=== PATIENT | male | born 1955 | race Caucasian/White ===

== ENCOUNTER 2019-05-13 05:49 | Inpatient (IN) | payer BC ==
[2019-05-12 09:24] VITALS: BMI 22.5
[~2019-05-13 05:49] MED LIST: DEXAMETHASONE SOD PHOSPHATE 10 MG/ML 1 ML VIAL IV ONE; HYDROmorphone 0.5 MG/0.5 ML SYRINGE IVP PRN; MIDAZOLAM 2 MG/2 ML VIAL IV PRN; SCOPOLAMINE 1.5MG/72HR PATCH TRANSDERM ONE; SODIUM CHLORIDE 0.9% 1,000 ML in EMPTY BAG 1 BAG IV ONE
[2019-05-13 06:51] LABS: Basophils # (A) 0.1 k/uL (0-0.2); Basophils % (A) 1 %; Eosinophils # (A) 0.3 k/uL (0-0.7); Eosinophils % (A) 4 %; HCT 42.5 % (39.0-53.0); HGB 13.9 gm/dL (13.0-17.5); Lymphocytes # (A) 1.4 k/uL (1.0-4.8); Lymphocytes % (A) 22 %; MCH 31.3 pg (25.0-35.0); MCHC 32.8 g/dL (31.0-37.0); MCV 95.5 fL (80.0-100.0); Mean Platelet Volume 7.8; Monocytes # (A) 0.4 k/uL (0-1.0); Monocytes % (A) 6 %; Neutrophils # (A) 4.4 k/uL (1.3-7.7); Neutrophils % (A) 66 %; Platelet Count 181 k/uL (150-450); RBC 4.45 m/uL (4.30-5.90); RDW 13.1 % (11.5-15.5); WBC 6.7 k/uL (3.8-10.6)
[2019-05-13 06:59] LABS: Prothrombin Time 10.4 sec (9.0-12.0)
[2019-05-13] MEDS ORDERED: ASPIRIN 325 MG TAB PO ONE (07:00)
[2019-05-13 07:07] LABS: African American GFR (CKD) >90 (>60 ml/min/1.73 sqM); Anion Gap 6 mmol/L; Blood Urea Nitrogen 16 mg/dL (9-20); Carbon Dioxide 28 mmol/L (22-30); Chloride 107 mmol/L (98-107); Glucose 96 mg/dL (74-99); Potassium 4.3 mmol/L (3.5-5.1); Sodium 141 mmol/L (137-145)
[2019-05-13] MEDS ORDERED: ONDANSETRON 4 MG/2 ML VIAL ONE (07:30)
[2019-05-13] MEDS ORDERED: PROPOFOL 10 MG/ML 20 ML VIAL IV ONE (07:30)
[2019-05-13] MEDS ORDERED: MIDAZOLAM 2 MG/2 ML VIAL ONE (07:30)
[2019-05-13] MEDS ORDERED: fentaNYL (PF) 50 MCG/ML 2 ML AMP ONE (07:30)
[2019-05-13] MEDS ORDERED: NEOSTIGMINE 1 MG/ML 10 ML VIAL ONE (07:30)
[2019-05-13] MEDS ORDERED: GLYCOPYRROLATE 0.2 MG/ML 2 ML VIAL ONE (07:30)
[2019-05-13] MEDS ORDERED: ePHEDrine SULFATE/0.9% NACL/PF 50 MG/5 ML SYRINGE IV ONE (07:30)
[2019-05-13] MEDS ORDERED: HEPARIN SODIUM,PORCINE 10,000 UNIT/ML 1 ML VIAL ONE (07:30)
[2019-05-13] MEDS ORDERED: ESMOLOL 100 MG/10 ML VIAL ONE (07:30)
[2019-05-13] MEDS ORDERED: ROCURONIUM BROMIDE 10 MG/ML 10 ML VIAL IV ONE (07:30)
[2019-05-13] MEDS ORDERED: SUCCINYLCHOLINE CHLORIDE 100 MG/5 ML SYR IV ONE (07:30)
[2019-05-13] MEDS ORDERED: LIDOCAINE 1% INJ 10MG/ML (20 ML MDV) ONE (07:30)
[2019-05-13] MEDS ORDERED: PHENYLEPHRINE-0.9% NACL SYG 1 MG/10 ML SYRINGE ONE (07:30)
[2019-05-13] MEDS ORDERED: SODIUM CHLORIDE 0.9% 1,000 ML IV SCH ×2 (10:30→17:15)
--- NOTE | 2019-05-13 11:44 | IR ---
EXAMINATION TYPE: IR fire suppression captain aorta DATE OF EXAM: 05/13/2019 COMPARISON: NONE HISTORY: Fluoroscopy time. Fluoroscopy was provided to the referring clinician.
[2019-05-13 12:08] LABS: Glucose,Whole Blood 112 mg/dL (75-99)
[2019-05-13 12:31] LABS: Basophils % (A) 0 %; Eosinophils # (A) 0.2 k/uL (0-0.7); Eosinophils % (A) 2 %; HCT 40.1 % (39.0-53.0); HGB 13.2 gm/dL (13.0-17.5); Lymphocytes # (A) 1.7 k/uL (1.0-4.8); Lymphocytes % (A) 23 %; MCH 31.6 pg (25.0-35.0); MCHC 32.9 g/dL (31.0-37.0); MCV 96.3 fL (80.0-100.0); Mean Platelet Volume 7.4; Monocytes # (A) 0.4 k/uL (0-1.0); Monocytes % (A) 6 %; Neutrophils # (A) 4.9 k/uL (1.3-7.7); Neutrophils % (A) 68 %; Platelet Count 160 k/uL (150-450); RBC 4.17 m/uL (4.30-5.90); WBC 7.2 k/uL (3.8-10.6)
[2019-05-13 12:42] LABS: African American GFR (CKD) >90 (>60 ml/min/1.73 sqM); Anion Gap 4 mmol/L; Blood Urea Nitrogen 13 mg/dL (9-20); Calcium 8.2 mg/dL (8.4-10.2); Carbon Dioxide 25 mmol/L (22-30); Chloride 109 mmol/L (98-107); Glucose 98 mg/dL (74-99); Sodium 138 mmol/L (137-145)
[2019-05-13] MEDS: ONDANSETRON 4 MG/2 ML VIAL IVP ONE (16:55)
[2019-05-13] MEDS: LACTATED RINGERS 1,000 ML IV SCH ×2 (16:56→17:01)
[2019-05-13] MEDS: hydrALAZINE HCL 25 MG TAB PO SCH ×2 (20:28→20:50)
[2019-05-13] MEDS: CLOPIDOGREL 75 MG TAB PO SCH (20:28)
[2019-05-13] MEDS: hydrALAZINE HCL 20 MG/ML 1 ML VIAL IVP PRN (21:09)
[2019-05-14 05:03] LABS: Basophils % (A) 0 %; Eosinophils # (A) 0.1 k/uL (0-0.7); Eosinophils % (A) 1 %; HCT 42.9 % (39.0-53.0); HGB 14.1 gm/dL (13.0-17.5); Lymphocytes % (A) 9 %; MCHC 32.8 g/dL (31.0-37.0); MCV 97.4 fL (80.0-100.0); Mean Platelet Volume 7.5; Monocytes # (A) 0.6 k/uL (0-1.0); Monocytes % (A) 6 %; Neutrophils # (A) 9.6 k/uL (1.3-7.7); Neutrophils % (A) 84 %; Platelet Count 170 k/uL (150-450); RBC 4.41 m/uL (4.30-5.90); WBC 11.5 k/uL (3.8-10.6)
[2019-05-14 05:14] LABS: African American GFR (CKD) >90 (>60 ml/min/1.73 sqM); Anion Gap 9 mmol/L; Blood Urea Nitrogen 12 mg/dL (9-20); Carbon Dioxide 22 mmol/L (22-30); Chloride 104 mmol/L (98-107); Glucose 99 mg/dL (74-99); Sodium 135 mmol/L (137-145)
[2019-05-14] MEDS ORDERED: DILTIAZEM DRIP BOLUS FROM BAG 1 MG SOLN IV STA (05:19)
[2019-05-14] MEDS: DILTIAZEM 125 MG in SODIUM CHLORIDE 0.9% 100 ML IV SCH (05:23)
--- NOTE | 2019-05-14 05:46 | AN ---
ANGIOGRAPHY REPORT PERIPHERAL PROCEDURE DATE OF SERVICE: May 13, 2019 PERFORMING PHYSICIAN: paper wrapping machine operator is Dr. Ryley Hernandez. Secondary churn operator is Dr. Daniel Jo. PROCEDURE PERFORMED: Successful percutaneous repair of infrarenal abdominal aortic aneurysm using 26 mm Ovation iX device with excellent angiographic results by the end and without any complication. INDICATION: This is a pleasant 58-year-old gentleman who sees Dr. Stefanie Crawford in the office as an outpatient who was diagnosed recently with enlarging infrarenal abdominal aortic aneurysm which was confirmed by a CT scan. He also was found to have bilateral iliac aneurysm as well. Because of that, he was brought today to undergo percutaneous repair of the infrarenal abdominal aortic aneurysm. COMPLICATION: None. LEVEL OF SEDATION: Procedure was performed under general anesthesia. COMPLICATION: None. PROCEDURE DESCRIPTION: After obtaining an informed consent, the patient was brought to the cardiac director geophysical laboratory. General anesthesia was induced with anesthesiologist in the room and VISCOSITY INSPECTOR in the room as well. Percutaneous access was obtained to both femoral arteries using Seldinger technique and using an 18-gauge Cook needle. A 12-Guamanian sheath was inserted into the ipsilateral vessel which was right common femoral artery using an 0.035 Glidewire. On the left common femoral artery we placed an 8-Guamanian sheath and the access was performed the same way on the right side using modified Seldinger technique and using ultrasound guidance on both sides. At that point, anticoagulation was initiated using heparin and the patient was given a weight-based heparin with 7000 units of heparin at the beginning of the procedure after the access was achieved and ACT monitoring was continued continuous throughout the procedure. After that, we loaded 26 mm Ovation iX aortic jordan delivery system over stiff 0.035 Glidewire. The delivery system was inserted into the vasculature and advanced until the implant radiopaque marker were about 20 mm proximal to the intended landing site. We oriented the aortic body to the desired position for appropriate access to the contralateral aortic body limb. Please note that we did perform an angiogram using pigtail catheter to assess the takeoff of the right and left accessory renal arteries prior to inserting the main body of the device. After that, we retracted the delivery system outer sheath until the sheath retraction knob met handle. Subsequently, we verified the radiopaque marker and long delivery system radiopaque marker to be in the correct position. Subsequently I deployed the first segment of the proximal stent by turning the first stent release knob, quarter turn counter-clockwise and then steadily I pulled the knob and attached wire from the handle completely. After that, we precisely positioned the implant radiopaque marker at final proximal landing site. We used contrast injection to confirm implant position relative to the accessory renal arteries mainly on the left side. After that, we retracted the angiographic pigtail catheter away from the proximal stent. Then we deployed the remainder of the proximal stent by turning the second stent release knob, quarter turn counter-clockwise at this point and then I steadily pulled the knob and the attached wire completely from the handle. Subsequently, we did remove the green fill cap from the polymer injection port on handle and attached fill syringe to it. We retracted the aortic body guidewire tip to radiopaque marker distal to the aortic body. We did use fluoroscopy guidance to intermittently to observe the filling of the graft with radiopaque filling polymer. Subsequently, contralateral limb access lumen was obtained with a guidewire the contralateral cannulation. After insertion 0.035 wire through the contralateral site, we loaded 16 x 80 mm iliac limb delivery system over contralateral guidewire. Under fluoroscopy guidance, we inserted the limb delivery system into the vasculature until the proximal iliac limb radiopaque marker aligned with the most proximal half ring of the aortic body. After confirming the position, we retracted the sheath to deploy the iliac limb while maintaining catheter handle position. Subsequently, we maintained position of the sheath and retracted the catheter handle to receipt the nose cone and end delivery system over sheath. After that, we advanced the aortic body guidewire. Then we released the catheter from the aortic body. For the ipsilateral limb, we used 22 x 100 limb delivery system. With the same way, we did the contralateral where under fluoroscopy guidance the limb was position. We did that on that side as well. Subsequently, we did balloon angioplasty which was 10 x 4 kissing balloons on both limbs in the proximal, mid and distal portion. Subsequently after , we did final angiogram which revealed what seems to be type 2 endoleak coming from the lumbar we did after that. Subsequently, we did close both groins percutaneously where on the right side, we did one Perclose and one 5-Guamanian sheath; on the left side we did one Perclose and one Angio-Seal. The procedure was completed without any complication. POSTPROCEDURE MANAGEMENT: 1. Will be antiplatelet with Plavix. 2. Continue to monitor both groins closely. 3. Follow up with the patient. BRIANNE / PILI: [id number] /
[2019-05-14] MEDS ORDERED: DILTIAZEM DRIP BOLUS FROM BAG 1 MG SOLN IV ONE (06:13)
[2019-05-14] MEDS: METOPROLOL TARTRATE 12.5 MG TAB PO SCH ×2 (08:12→20:12)
[2019-05-14] MEDS: ONDANSETRON 4 MG/2 ML VIAL IVP ONE (08:35)
[2019-05-14] MEDS ORDERED: ONDANSETRON 4 MG/2 ML VIAL IVP PRN ×2 (08:50→10:25)
[2019-05-14] MEDS ORDERED: MORPHINE SULFATE 2 MG/ML SYRINGE IVP STA (09:45)
[2019-05-14] MEDS ORDERED: BENZOCAINE SPRAY 1 CAN MUCOUS MEM ONE ×2 (11:02→11:07)
[2019-05-14] MEDS ORDERED: PROPOFOL 10 MG/ML 20 ML VIAL IV ONE (11:06)
[2019-05-14] MEDS ORDERED: LIDOCAINE 1% INJ 10MG/ML (20 ML MDV) ONE (11:06)
[2019-05-14] MEDS ORDERED: MIDAZOLAM 2 MG/2 ML VIAL ONE (11:06)
[2019-05-14] MEDS ORDERED: IV FLUID CONTINUATION 1,000 ML IV ONE (11:12)
[2019-05-14] MEDS: TAMSULOSIN 0.4 MG CAP.ER.24H PO SCH (12:15)
[2019-05-14] MEDS: CLOPIDOGREL 75 MG TAB PO SCH (12:16)
[2019-05-14] MEDS: ATORVASTATIN 40 MG TAB PO SCH (12:16)
[2019-05-14] MEDS: hydrALAZINE HCL 25 MG TAB PO SCH ×3 (12:16→21:03)
--- NOTE | 2019-05-14 12:37 | P.PN ---
Progress Note - Text Progress Note Date: 05/14/19 This is a pleasant 64-year-old gentleman was admitted to the hospital yesterday and underwent successful percutaneous repair of infrarenal abdominal aortic aneurysm using the operation device with an excellent results by the end as well as with an excellent bilateral groin hemostasis. During the night, the patient went into an atrial fibrillation with RVR. He continues to be in atrial fibrillation throughout the night in spite of high dose of Cardizem IV. Because of that I decided to do a SOFIYA and cardioversion on him. Upon induction anesthesia, the patient converted into normal sinus rhythm on his own. I am going to resume his medication including the metoprolol. Continue antiplatelet with the Plavix. The blood work was reviewed this morning and seems to be unremarkable. Both the groin seems to be unremarkable as well. I recommended keeping the patient overnight for 1 more day. Follow-up with him in the morning. And possible discharge home tomorrow morning as well. Also I am going to resume his Coumadin.
--- NOTE | 2019-05-14 13:11 | ECHOT ---
TRANSESOPHAGEAL ECHOCARDIOGRAM DATE OF SERVICE: May 14, 2019 PERFORMING PHYSICIAN: Daniel Jo MD, information engineer. PROCEDURE PERFORMED: Transesophageal echocardiogram. INDICATION: This is a 64-year-old gentleman with paroxysmal atrial fibrillation, who was admitted to the hospital yesterday and underwent successful percutaneous repair of infrarenal abdominal aortic aneurysm. Postprocedure, he went into atrial fibrillation with RVR which was uncontrollable, which was uncontrolled on maximized medical treatment. Because of that, I decided to do a SOFIYA and cardioversion on him. COMPLICATION: None. LEVEL OF SEDATION: The procedure was performed under general anesthesia. PROCEDURE DESCRIPTION: After obtaining an informed consent, explaining the procedure, benefits, risks, complications and alternatives, the patient was brought to the transesophageal echocardiogram suite. A pulse oximetry and heart rate monitors were attached to the patient prior to the procedure. The patient's throat was sprayed using lidocaine locally. Following that, the patient was turned into left lateral position. A bite guard was placed and the patient was then sedated with the above doses of Versed and fentanyl in divided doses. Following that, the transesophageal echocardiogram probe was advanced through the bite guard into the mid esophagus where 2-D echocardiogram images as well as color Doppler images of various cardiac structures were obtained. We evaluated the interatrial septum using 2-D echocardiogram, color Doppler, and contrast study. The procedure was completed. There were no complications. FINDINGS: The left ventricular dimension and systolic function appeared to be within normal limits. Right ventricle appeared to be within normal limits for dimension. The aortic valve is trileaflet valve without stenosis or regurgitation. The mitral valve seems mildly thickened with mild MR. Normal tricuspid valve and pulmonic valve. The left atrial appendage appeared to be free from any thrombus. CONCLUSION: 1. Intact interatrial septum without any evidence of shunt. 2. Normal left atrial appendage without any evidence of thrombus. 3. Normal left ventricular dimension and systolic function. 4. Normal cardiac chamber sizes. 5. Normal intracardiac valves. 6. No evidence of pericardial effusion. MMODL / IJN: [id number] /
[2019-05-14] MEDS: hydrALAZINE HCL 20 MG/ML 1 ML VIAL IVP PRN ×2 (17:46→23:39)
[2019-05-14] MEDS ORDERED: ALPRAZolam 0.25 MG TAB PO PRN (19:51)
[2019-05-15] MEDS: DILTIAZEM 125 MG in SODIUM CHLORIDE 0.9% 100 ML IV SCH (04:15)
[2019-05-15 05:34] LABS: Basophils % (A) 0 %; Eosinophils # (A) 0.1 k/uL (0-0.7); Eosinophils % (A) 1 %; HCT 41.2 % (39.0-53.0); HGB 14.4 gm/dL (13.0-17.5); Lymphocytes # (A) 1.4 k/uL (1.0-4.8); Lymphocytes % (A) 8 %; MCH 32.3 pg (25.0-35.0); Mean Platelet Volume 7.5; Monocytes # (A) 1.2 k/uL (0-1.0); Monocytes % (A) 6 %; Neutrophils # (A) 15.4 k/uL (1.3-7.7); Neutrophils % (A) 84 %; Platelet Count 184 k/uL (150-450); RBC 4.46 m/uL (4.30-5.90); RDW 13.7 % (11.5-15.5); WBC 18.3 k/uL (3.8-10.6)
[2019-05-15 05:37] LABS: MCV 92.4 fL (80.0-100.0)
[2019-05-15 05:43] LABS: African American GFR (CKD) >90 (>60 ml/min/1.73 sqM); Anion Gap 11 mmol/L; Blood Urea Nitrogen 17 mg/dL (9-20); Calcium 9.2 mg/dL (8.4-10.2); Carbon Dioxide 22 mmol/L (22-30); Chloride 100 mmol/L (98-107); Glucose 125 mg/dL (74-99); Potassium 3.5 mmol/L (3.5-5.1); Sodium 133 mmol/L (137-145)
[2019-05-15] MEDS ORDERED: Potassium Replacement Protocol 1 EACH MISC MISCELLANE PRN (06:05)
[2019-05-15] MEDS: POTASSIUM CHLORIDE ER 20 MEQ TAB.ER PO SCH ×2 (06:12→08:14)
[2019-05-15] MEDS: hydrALAZINE HCL 20 MG/ML 1 ML VIAL IVP PRN (06:56)
[2019-05-15] MEDS: METOPROLOL TARTRATE 12.5 MG TAB PO SCH (08:14)
[2019-05-15] MEDS: TAMSULOSIN 0.4 MG CAP.ER.24H PO SCH (08:14)
[2019-05-15] MEDS: hydrALAZINE HCL 25 MG TAB PO SCH ×4 (08:14→22:13)
[2019-05-15] MEDS: CLOPIDOGREL 75 MG TAB PO SCH (08:14)
[2019-05-15] MEDS: ATORVASTATIN 40 MG TAB PO SCH (08:14)
[2019-05-15] MEDS ORDERED: METOPROLOL TARTRATE 12.5 MG TAB PO STA (08:39)
--- NOTE | 2019-05-15 09:03 | PN ---
PROGRESS NOTE DATE OF SERVICE: 05/15/2019 BRIEF HISTORY: This is a 64-year-old gentleman who was admitted to the hospital and underwent successful percutaneous repair of infrarenal abdominal aortic aneurysm using the ovation device. Yesterday, he went into AFib with RVR and subsequently converted to normal sinus mechanism. On followup with him today, he is feeling better. Denies any chest pain or discomfort but he does have epigastric discomfort, but it seems to be better than yesterday. It looks like he does have some reflux disease as well. Reviewing the blood work indicated WBC of 18.3. I am concerned about possible infection and possibly UTI at this point. Because of that, I am going to keep the patient overnight in the selective unit here on the floor. I would increase the dose of metoprolol as well to 25 mg p.o. b.i.d. Continue the Plavix. Continue the Coumadin. Follow up with the patient as well. BRIANNE / TRININ: [id number] /
[2019-05-15] MEDS: LEVOFLOXACIN 250MG-D5W PMX 250 MG in DEXTROSE/WATER 1 50ML.BAG IVPB SCH (10:16)
[2019-05-15 11:39] LABS: Appearance,Urine Cloudy (Clear); Bilirubin,Urine Negative (Negative); Blood,Urine Moderate (Negative); Color,Urine Yellow; Glucose,Urine (UA) Negative (Negative); Ketones,Urine Negative (Negative); Leukocyte Esterase,Urine Large (Negative); Mucus,Urine Rare /hpf; Nitrite,Urine Negative (Negative); PH, Urine 6.5 (5.0-8.0); Protein,Urine 1+ (Negative); RBC,Urine >182 /hpf (0-5); Specific Gravity,Urine 1.013 (1.001-1.035); Urobilinogen,Urine <2.0 mg/dL (<2.0); WBC,Urine 150 /hpf (0-5)
[2019-05-15] MEDS: MAGNESIUM HYDROXIDE 2,400 MG/10 ML CUP PO PRN ×2 (17:31→20:28)
[2019-05-15] MEDS ORDERED: AMIODARONE 360 MG in DEXTROSE 5% IN WATER 200 ML IV ONE ×2 (17:57)
[2019-05-15] MEDS ORDERED: METOPROLOL TARTRATE 50 MG TAB PO STA (17:57)
[2019-05-15] MEDS ORDERED: DEXTROSE 5% IN WATER 100 ML with AMIODARONE 150 MG IV ONE (17:57)
[2019-05-15] MEDS ORDERED: HEPARIN SODIUM,PORCINE 5,000 UNIT/ML 1 ML VIAL IV PRN (17:58)
[2019-05-15] MEDS ORDERED: HEPARIN SODIUM,PORCINE 5,000 UNIT/ML 1 ML VIAL IV ONE (17:58)
[2019-05-15] MEDS ORDERED: HEPARIN SOD,PORK IN 0.45% NACL 25,000 UNIT in 0.45% NACL 1 250ML.BAG IV SCH (18:00)
[2019-05-15 18:28] LABS: Basophils % (A) 0 %; Eosinophils # (A) 0.2 k/uL (0-0.7); Eosinophils % (A) 1 %; HCT 42.7 % (39.0-53.0); HGB 14.2 gm/dL (13.0-17.5); Lymphocytes # (A) 1.3 k/uL (1.0-4.8); Lymphocytes % (A) 8 %; MCH 31.2 pg (25.0-35.0); MCHC 33.3 g/dL (31.0-37.0); MCV 93.9 fL (80.0-100.0); Mean Platelet Volume 7.3; Monocytes # (A) 0.8 k/uL (0-1.0); Monocytes % (A) 5 %; Neutrophils # (A) 14.1 k/uL (1.3-7.7); Neutrophils % (A) 85 %; Platelet Count 184 k/uL (150-450); RBC 4.55 m/uL (4.30-5.90); WBC 16.6 k/uL (3.8-10.6)
[2019-05-15 18:37] LABS: INR 0.9 (<1.2); Partial Thromboplastin Time 23.4 sec (22.0-30.0); Prothrombin Time 9.8 sec (9.0-12.0)
[2019-05-15] MEDS: METOPROLOL TARTRATE 50 MG TAB PO SCH (20:28)
[2019-05-15] MEDS ORDERED: METOPROLOL TARTRATE 25 MG TAB PO SCH (21:00)
[2019-05-15 21:52] LABS: African American GFR (CKD) >90 (>60 ml/min/1.73 sqM); Anion Gap 8 mmol/L; Blood Urea Nitrogen 19 mg/dL (9-20); Calcium 9.1 mg/dL (8.4-10.2); Carbon Dioxide 24 mmol/L (22-30); Chloride 102 mmol/L (98-107); Glucose 139 mg/dL (74-99); Potassium 3.8 mmol/L (3.5-5.1); Sodium 134 mmol/L (137-145)
[2019-05-16] MEDS: AMIODARONE 300 MG in DEXTROSE 5% IN WATER 250 ML IV SCH ×4 (00:48→10:36)
[2019-05-16 07:35] LABS: HCT 42.3 % (39.0-53.0); HGB 14.3 gm/dL (13.0-17.5); MCH 31.9 pg (25.0-35.0); MCHC 33.8 g/dL (31.0-37.0); MCV 94.5 fL (80.0-100.0); Mean Platelet Volume 7.7; Platelet Count 205 k/uL (150-450); RBC 4.48 m/uL (4.30-5.90); RDW 13.2 % (11.5-15.5); WBC 14.1 k/uL (3.8-10.6)
[2019-05-16] MEDS: METOPROLOL TARTRATE 50 MG TAB PO SCH (08:23)
[2019-05-16] MEDS: TAMSULOSIN 0.4 MG CAP.ER.24H PO SCH (08:23)
[2019-05-16] MEDS: hydrALAZINE HCL 25 MG TAB PO SCH (08:23)
[2019-05-16] MEDS: ATORVASTATIN 40 MG TAB PO SCH (08:23)
[2019-05-16] MEDS: CLOPIDOGREL 75 MG TAB PO SCH (08:23)
[2019-05-16] MEDS: LEVOFLOXACIN 250MG-D5W PMX 250 MG in DEXTROSE/WATER 1 50ML.BAG IVPB SCH (08:24)
[2019-05-16 08:34] LABS: African American GFR (CKD) >90 (>60 ml/min/1.73 sqM); Anion Gap 7 mmol/L; Blood Urea Nitrogen 24 mg/dL (9-20); Calcium 8.9 mg/dL (8.4-10.2); Carbon Dioxide 26 mmol/L (22-30); Chloride 102 mmol/L (98-107); Glucose 120 mg/dL (74-99); Potassium 3.9 mmol/L (3.5-5.1); Sodium 135 mmol/L (137-145)
[2019-05-16 09:33] VITALS: BP 97/67; TEMP 98.2
[2019-05-16] MEDS: MAGNESIUM HYDROXIDE 2,400 MG/10 ML CUP PO PRN (12:00)
[2019-05-16 12:39] VITALS: PULSE 59; RESP 16
[2019-05-16] MEDS ORDERED: PANTOPRAZOLE 40 MG TABLET PO SCH (17:30)
[2019-05-16] MEDS ORDERED: WARFARIN 5 MG TAB PO ONE (18:00)
[2019-05-16] MEDS ORDERED: AMIODARONE 200 MG TAB PO SCH (21:00)
--- NOTE | 2019-05-16 21:11 | DS ---
DISCHARGE SUMMARY DATE OF ADMISSION: 05/13/2019 DATE OF DISCHARGE: 05/16/2019 BRIEF HISTORY: This is a pleasant 64-year-old gentleman who was admitted to the hospital 2 days ago and underwent successful percutaneous repair of abdominal aortic aneurysm. The procedure was complicated by atrial fibrillation with RVR and the patient subsequently converted into normal sinus rhythm on his own. Yesterday he went into atrial fibrillation again and he was started on amiodarone and converted to normal sinus mechanism on amiodarone. On followup with him today, he is feeling good and he is asymptomatic. I am going to discharge the patient on anti-platelet with Plavix, Coumadin for anticoagulation for the atrial fibrillation, Protonix, Lopressor and amiodarone. The patient will be seeing me in the office in a few days. After that, he will be sent to see Dr. Crawford. MMIGNACIAL / IJN: [id number] /
[2019-05-17] MEDS ORDERED: SULFAMETHOX-TMP 800-160MG 1 EACH TAB PO SCH (09:00)
== END 2019-05-16 14:19 | disposition home or self-care (01) | DRG 269 ==
LOC: 2ORMAIN 05:49 → 2SICU 10:31
PROVIDERS: ADMIT Internal Medicine Interventional Cardiology; ATTEND Internal Medicine Interventional Cardiology
PROC: 04V03DZ Restriction of Abdominal Aorta with Intraluminal Device, Percutaneous Approach (ICD-10-PCS; principal; 2019-05-13 07:30)
PROC: B24BZZ4 Ultrasonography of Heart with Aorta, Transesophageal (ICD-10-PCS; 2019-05-14)
DX: I71.4 Abdominal aortic aneurysm, without rupture (principal); I48.0 Paroxysmal atrial fibrillation; I25.10 Atherosclerotic heart disease of native coronary artery without angina pectoris; E78.00 Pure hypercholesterolemia, unspecified; I10 Essential (primary) hypertension; K21.9 Gastro-esophageal reflux disease without esophagitis; F17.210 Nicotine dependence, cigarettes, uncomplicated; Z79.899 Other long term (current) drug therapy; Z79.01 Long term (current) use of anticoagulants; Z79.02 Long term (current) use of antithrombotics/antiplatelets; Z98.890 Other specified postprocedural states
CPT/HCPCS: 34705; 80048; 81001; 84443; 84484; 85025; 85027; 85610; 85730; 86850; 86900; 86901; 92960; 93312; 93320; 93325

== ENCOUNTER 2019-05-20 09:59 | Observation (INO) | payer BC ==
[2019-05-20] MEDS ORDERED: MORPHINE SULFATE 4 MG/ML SYRINGE IV STA (10:49)
[2019-05-20] MEDS ORDERED: SODIUM CHLORIDE 0.9% 500 ML 500 ML IV STA (10:49)
[2019-05-20] MEDS ORDERED: hydrALAZINE HCL 20 MG/ML 1 ML VIAL IVP STA ×2 (10:49→12:29)
--- NOTE | 2019-05-20 10:59 | ED ---
General Adult HPI <Teja Goldsmith - Last Filed: 05/20/19 14:15> - General Source: patient, RN notes reviewed Mode of arrival: ambulatory Limitations: no limitations <Neeraj Bains - Last Filed: 05/20/19 21:08> - General Chief complaint: Abdominal Pain Stated complaint: High blood pressure Time Seen by Provider: 05/20/19 10:19 - History of Present Illness Initial comments: Chris is a 64-year-old male with a past medical history of hypertension, prostate disorder who presents to the emergency department for a chief complaint of weakness and abdominal pain. Patient states that he had a percutaneous abdominal aortic aneurysm repair performed on May [address] Jo. States that since that time he has had intermittent abdominal pain on and off since his surgery. States that today he was watering [place]ckee and started to feel sick and weak and nauseous. She said they checked his blood pressure and it was 190. Patient has states that patient has been having high blood pressure since he was in the hospital. States that he was also diagnosed with atrial fibrillation while in the hospital. Patient currently anticoagulated on Coumadin.Patient has no other complaints at this time including shortness of breath, chest pain, nausea or vomiting, headache, or visual changes. (Neeraj Bains) - Related Data Home Medications Medication Instructions Recorded Confirmed Atorvastatin [Lipitor] 40 mg PO DAILY 04/11/19 05/20/19 Cholecalciferol (Vitamin D3) 10,000 unit PO DAILY 04/11/19 05/20/19 [Vitamin D3] Multivitamins, Thera [Multivitamin 1 tab PO DAILY 04/11/19 05/20/19 (formulary)] Tamsulosin [Flomax] 0.4 mg PO DAILY 04/11/19 05/20/19 Warfarin Sodium 4 mg PO HS 04/11/19 05/20/19 Previous Rx's Medication Instructions Recorded Amiodarone [Cordarone] 200 mg PO BID #180 tab 05/16/19 Clopidogrel [Plavix] 75 mg PO DAILY #90 tab 05/16/19 Metoprolol Tartrate [Lopressor] 50 mg PO BID #180 tab 05/16/19 hydrALAZINE HCL [Apresoline] 25 mg PO TID #180 tab 05/16/19 Allergies Allergy/AdvReac Type Severity Reaction Status Date / Time No Known Allergies Allergy Verified 05/20/19 10:16 Review of Systems ROS Other: All systems not noted in ROS Statement are negative. <Teja Goldsmith - Last Filed: 05/20/19 14:15> ROS Other: All systems not noted in ROS Statement are negative. <Neeraj Bains - Last Filed: 05/20/19 21:08> ROS Statement: Those systems with pertinent positive or pertinent negative responses have been documented in the HPI. Past Medical History Past Medical History: Atrial Fibrillation, Hypertension, Prostate Disorder Additional Past Medical History / Comment(s): BPH, AAA, CYST ON HIS BACK THAT IS INFECTED AND BEING TREATED BY DR JUAN-finished ANTIBIOTIC - DR JO aware), SEE CARDIOLOGY H & P. History of Any Multi-Drug Resistant Organisms: None Reported Past Surgical History: Tonsillectomy Additional Past Surgical History / Comment(s): COLONOSCOPY Past Anesthesia/Blood Transfusion Reactions: No Reported Reaction Past Psychological History: No Psychological Hx Reported Smoking Status: Current every day smoker Past Alcohol Use History: None Reported Past Drug Use History: None Reported - Past Family History Brother(s) Family Medical History: Cancer <Neeraj Bains P - Last Filed: 05/20/19 21:08> General Exam Limitations: no limitations General appearance: alert, in no apparent distress Head exam: Present: atraumatic, normocephalic, normal inspection Eye exam: Present: normal appearance, PERRL, EOMI. Absent: scleral icterus, conjunctival injection, periorbital swelling ENT exam: Present: normal exam, mucous membranes moist Neck exam: Present: normal inspection, full ROM. Absent: tenderness, meningismus, lymphadenopathy Respiratory exam: Present: normal lung sounds bilaterally. Absent: respiratory distress, wheezes, rales, rhonchi, stridor Cardiovascular Exam: Present: regular rate, normal rhythm, normal heart sounds. Absent: systolic murmur, diastolic murmur, rubs, gallop, clicks GI/Abdominal exam: Present: soft, tenderness (Tenderness noted to the right and left lower quadrants. No tenderness to the groin area.), normal bowel sounds. Absent: distended, guarding, rebound, rigid Neurological exam: Present: alert, oriented X3, CN II-XII intact Psychiatric exam: Present: normal affect, normal mood <Neeraj Bains P - Last Filed: 05/20/19 21:08> Course Vital Signs 05/20/19 05/20/19 05/20/19 10:06 10:23 10:40 Temperature 97.6 F Pulse Rate 56 L 65 Respiratory 20 Rate Blood Pressure 189/89 190/92 O2 Sat by Pulse 100 99 100 Oximetry 05/20/19 05/20/19 05/20/19 11:00 11:20 11:40 Temperature Pulse Rate 65 61 Respiratory Rate Blood Pressure 194/88 182/89 178/92 O2 Sat by Pulse 100 100 Oximetry 05/20/19 05/20/19 05/20/19 12:00 12:20 12:40 Temperature Pulse Rate 53 L 55 L 57 L Respiratory 16 Rate Blood Pressure 157/82 167/79 148/71 O2 Sat by Pulse 99 97 98 Oximetry 05/20/19 05/20/19 05/20/19 13:00 13:20 13:40 Temperature Pulse Rate 55 L 55 L Respiratory Rate Blood Pressure 149/68 82/59 98/57 O2 Sat by Pulse 96 96 Oximetry 05/20/19 05/20/19 05/20/19 13:50 13:55 14:00 Temperature Pulse Rate 53 L 52 L Respiratory Rate Blood Pressure 80/48 98/46 98/51 O2 Sat by Pulse 98 99 Oximetry 05/20/19 05/20/19 05/20/19 14:10 14:20 14:30 Temperature Pulse Rate 53 L 50 L 49 L Respiratory Rate Blood Pressure 95/53 106/67 112/62 O2 Sat by Pulse 99 99 100 Oximetry 05/20/19 15:40 Temperature 98.6 F Pulse Rate 56 L Respiratory 16 Rate Blood Pressure 106/66 O2 Sat by Pulse 99 Oximetry Medical Decision Making - Lab Data Result diagrams: 05/20/19 11:14 05/20/19 11:14 <Teja Goldsmith - Last Filed: 05/20/19 14:15> - Lab Data Result diagrams: 05/20/19 11:14 05/20/19 11:14 <Neeraj Bains - Last Filed: 05/20/19 21:08> - Medical Decision Making I, Yoan Goldsmith, personally saw and examined the patient. I have reviewed an d agree with the PA findings, including all diagnostic interpretations and treatment plans as written unless otherwise stated. I was present for the miller portions of any procedures performed and the inclusive time noted for any critical care statement. (Teja Goldsmith) 64-year-old male presents to the emergency department for multiple complaints. Patient states that he has been having abdominal pain intermittently since his AAA repair 5 days ago. This was done percutaneously. States that today he started to feel weak as well. Patient was diagnosed with A. fib in the hospital, EKG obtained today did show a sinus rhythm. On exam patient had slight lower abdominal tenderness. CBC and CMP unremarkable. Lactic acid 1.5.. Urine is negative for infection, trace ketones could be related to dehydration. Patient also hypertensive upon arrival with a blood pressure 189/89. Patient was given 10 of hydralazine. Second dose of hydralazine was not given. Patient's blood pressure at that time was 140s. He did maintain a normal blood pressure for about 2.5 hours afterwards however then became hypotensive in the 90s systolic. Patient was then given a L of fluids. We did consult with Dr. Jo and CT abdomen and pelvis was recommended which showed no bowel obstruction. Chest x-ray showed chronic emphysematous changes without acute pulmonary process. Given patient's labile blood pressure he will be admitted for further measuring a Dr. Jo will be consulted. (Neeraj Bains) - Lab Data Lab Results 05/20/19 05/20/19 05/20/19 Range/Units 10:51 11:14 11:14 WBC 8.2 (3.8-10.6) k/uL RBC 4.34 (4.30-5.90) m/uL Hgb 13.6 (13.0-17.5) gm/dL Hct 40.2 (39.0-53.0) % MCV 92.6 (80.0-100.0) fL MCH 31.4 (25.0-35.0) pg MCHC 33.9 (31.0-37.0) g/dL RDW 14.1 (11.5-15.5) % Plt Count 251 (150-450) k/uL Neutrophils % 73 % Lymphocytes % 17 % Monocytes % 6 % Eosinophils % 3 % Basophils % 0 % Neutrophils # 5.9 (1.3-7.7) k/uL Lymphocytes # 1.4 (1.0-4.8) k/uL Monocytes # 0.5 (0-1.0) k/uL Eosinophils # 0.2 (0-0.7) k/uL Basophils # 0.0 (0-0.2) k/uL PT (9.0-12.0) sec INR (<1.2) APTT (22.0-30.0) sec Sodium 138 (137-145) mmol/L Potassium 3.9 (3.5-5.1) mmol/L Chloride 103 (98-107) mmol/L Carbon Dioxide 24 (22-30) mmol/L Anion Gap 11 mmol/L BUN 18 (9-20) mg/dL Creatinine 0.91 (0.66-1.25) mg/dL Est GFR (CKD-EPI)AfAm >90 (>60 ml/min/1.73 sqM) Est GFR (CKD-EPI)NonAf 89 (>60 ml/min/1.73 sqM) Glucose 117 H (74-99) mg/dL Plasma Lactic Acid [place] (0.7-2.0) mmol/L Calcium 8.9 (8.4-10.2) mg/dL Magnesium 2.1 (1.6-2.3) mg/dL Total Bilirubin 0.9 (0.2-1.3) mg/dL AST 44 (17-59) U/L ALT 55 (21-72) U/L Alkaline Phosphatase 136 H (38-126) U/L Troponin I (0.000-0.034) ng/mL Total Protein 6.3 (6.3-8.2) g/dL Albumin 3.7 (3.5-5.0) g/dL Urine Color Light Yellow Urine Appearance Clear (Clear) Urine pH 8.0 (5.0-8.0) Ur Specific [place] 1.009 (1.001-1.035) Urine Protein Negative (Negative) Urine Glucose (UA) Negative (Negative) Urine Ketones Trace H (Negative) Urine Blood Negative (Negative) Urine Nitrite Negative (Negative) Urine Bilirubin Negative (Negative) Urine Urobilinogen <2.0 (<2.0) mg/dL Ur Leukocyte Esterase Negative (Negative) 05/20/19 05/20/19 05/20/19 Range/Units 11:14 11:14 11:14 WBC (3.8-10.6) k/uL RBC (4.30-5.90) m/uL Hgb (13.0-17.5) gm/dL Hct (39.0-53.0) % MCV (80.0-100.0) fL MCH (25.0-35.0) pg MCHC (31.0-37.0) g/dL RDW (11.5-15.5) % Plt Count (150-450) k/uL Neutrophils % % Lymphocytes % % Monocytes % % Eosinophils % % Basophils % % Neutrophils # (1.3-7.7) k/uL Lymphocytes # (1.0-4.8) k/uL Monocytes # (0-1.0) k/uL Eosinophils # (0-0.7) k/uL Basophils # (0-0.2) k/uL PT 10.9 (9.0-12.0) sec INR 1.0 (<1.2) APTT 23.0 (22.0-30.0) sec Sodium (137-145) mmol/L Potassium (3.5-5.1) mmol/L Chloride (98-107) mmol/L Carbon Dioxide (22-30) mmol/L Anion Gap mmol/L BUN (9-20) mg/dL Creatinine (0.66-1.25) mg/dL Est GFR (CKD-EPI)AfAm (>60 ml/min/1.73 sqM) Est GFR (CKD-EPI)NonAf (>60 ml/min/1.73 sqM) Glucose (74-99) mg/dL Plasma Lactic Acid [place] 1.5 (0.7-2.0) mmol/L Calcium (8.4-10.2) mg/dL Magnesium (1.6-2.3) mg/dL Total Bilirubin (0.2-1.3) mg/dL AST (17-59) U/L ALT (21-72) U/L Alkaline Phosphatase (38-126) U/L Troponin I <0.012 (0.000-0.034) ng/mL Total Protein (6.3-8.2) g/dL Albumin (3.5-5.0) g/dL Urine Color Urine Appearance (Clear) Urine pH (5.0-8.0) Ur Specific [place] (1.001-1.035) Urine Protein (Negative) Urine Glucose (UA) (Negative) Urine Ketones (Negative) Urine Blood (Negative) Urine Nitrite (Negative) Urine Bilirubin (Negative) Urine Urobilinogen (<2.0) mg/dL Ur Leukocyte Esterase (Negative) Disposition <Teja Goldsmith - Last Filed: 05/20/19 14:15> Is patient prescribed a controlled substance at d/c from ED?: No Time of Disposition: 14:49 <Neeraj Bains - Last Filed: 05/20/19 21:08> Clinical Impression: Hypotension, Weakness, Abdominal pain Disposition: ADMITTED IP TO THIS HOSP Condition: Fair
[2019-05-20 11:01] LABS: Appearance,Urine Clear (Clear); Bilirubin,Urine Negative (Negative); Blood,Urine Negative (Negative); Color,Urine Light Yellow; Glucose,Urine (UA) Negative (Negative); Ketones,Urine Trace (Negative); Leukocyte Esterase,Urine Negative (Negative); Nitrite,Urine Negative (Negative); Protein,Urine Negative (Negative); Specific Gravity,Urine 1.009 (1.001-1.035); Urobilinogen,Urine <2.0 mg/dL (<2.0)
[2019-05-20 11:25] LABS: Basophils % (A) 0 %; Eosinophils # (A) 0.2 k/uL (0-0.7); Eosinophils % (A) 3 %; HCT 40.2 % (39.0-53.0); HGB 13.6 gm/dL (13.0-17.5); Lymphocytes # (A) 1.4 k/uL (1.0-4.8); Lymphocytes % (A) 17 %; MCH 31.4 pg (25.0-35.0); MCHC 33.9 g/dL (31.0-37.0); MCV 92.6 fL (80.0-100.0); Mean Platelet Volume 8.1; Monocytes # (A) 0.5 k/uL (0-1.0); Monocytes % (A) 6 %; Neutrophils # (A) 5.9 k/uL (1.3-7.7); Neutrophils % (A) 73 %; Platelet Count 251 k/uL (150-450); RBC 4.34 m/uL (4.30-5.90); RDW 14.1 % (11.5-15.5); WBC 8.2 k/uL (3.8-10.6)
[2019-05-20 11:39] LABS: Prothrombin Time 10.9 sec (9.0-12.0)
--- NOTE | 2019-05-20 11:44 | XR ---
EXAMINATION TYPE: XR chest 2V DATE OF EXAM: 05/20/2019 COMPARISON: Chest x-ray December 20, 2010. HISTORY: Weakness. TECHNIQUE: Frontal and lateral views of the chest are obtained. FINDINGS: There is chronic emphysematous change without suspicious focal air space opacity, pleural effusion, or pneumothorax seen. The cardiac silhouette size remains within normal limits. Overlying EKG leads are seen. The osseous structures are intact. IMPRESSION: Chronic emphysematous changes without acute pulmonary process.
[2019-05-20 12:03] LABS: ALT 55 U/L (21-72); AST 44 U/L (17-59); African American GFR (CKD) >90 (>60 ml/min/1.73 sqM); Albumin 3.7 g/dL (3.5-5.0); Alkaline Phosphatase 136 U/L (38-126); Anion Gap 11 mmol/L; Blood Urea Nitrogen 18 mg/dL (9-20); Calcium 8.9 mg/dL (8.4-10.2); Carbon Dioxide 24 mmol/L (22-30); Chloride 103 mmol/L (98-107); Glucose 117 mg/dL (74-99); Magnesium 2.1 mg/dL (1.6-2.3); Potassium 3.9 mmol/L (3.5-5.1); Sodium 138 mmol/L (137-145); Total Bilirubin 0.9 mg/dL (0.2-1.3); Total Protein 6.3 g/dL (6.3-8.2)
--- NOTE | 2019-05-20 13:16 | CT ---
EXAMINATION TYPE: CT abdomen pelvis w con DATE OF EXAM: 05/20/2019 COMPARISON: None. HISTORY: Difficulty urinating, constipation, high blood pressure. CT DLP: 693.4 mGycm, Automated Exposure Control for Dose Reduction was Utilized. CONTRAST: CT scan of the abdomen and pelvis is performed without oral but with IV Contrast, patient injected wi th 100 mL of Isovue 300. FINDINGS: LUNG BASES: No significant abnormality is appreciated. LIVER/GB: No significant abnormality is appreciated. PANCREAS: No significant abnormality is seen. SPLEEN: No significant abnormality is seen. ADRENALS: No significant abnormality is seen. KIDNEYS: Symmetrical intramedullary uptake and excretion without hydronephrosis bilaterally. BOWEL: No significant abnormality is seen. PROSTATE/SEMINAL VESICLES: No gross abnormality seen. LYMPH NODES: No greater than 1cm abdominal or pelvic lymph nodes are appreciated. OSSEOUS STRUCTURES: Straightening of lumbar spine with multilevel spurring and disc space narrowing, findings most prominent L4-L5 and L5-S1 levels. OTHER: There is aortobiiliac stent graft through the right common iliac artery aneurysm. Stent graft is patent. Evaluation of stent graft suboptimal as exam was not performed under stent graft protocol. [place] AAA up to 4.4 cm transversely X/31 is noted. No prior study available for comparison IMPRESSION: No bowel obstruction. No suspicious acute finding to account for patient's symptoms.
[2019-05-20] MEDS ORDERED: SODIUM CHLORIDE 0.9% 1,000 ML IV ONE (13:56)
[2019-05-20] MEDS ORDERED: NALOXONE 0.4 MG/ML 1 ML VIAL IV PRN (14:50)
[2019-05-20] MEDS: SODIUM CHLORIDE 0.9% 1,000 ML IV SCH (15:46)
[2019-05-20] MEDS: hydrALAZINE HCL 25 MG TAB PO SCH ×2 (16:58→21:33)
[2019-05-20] MEDS ORDERED: WARFARIN 2 MG TAB PO SCH (21:00)
[2019-05-20] MEDS: AMIODARONE 200 MG TAB PO SCH (21:33)
[2019-05-20] MEDS: METOPROLOL TARTRATE 50 MG TAB PO SCH ×2 (21:33→21:50)
[2019-05-21] MEDS: SODIUM CHLORIDE 0.9% 1,000 ML IV SCH (08:14)
[2019-05-21] MEDS: METOPROLOL TARTRATE 50 MG TAB PO SCH (08:14)
[2019-05-21] MEDS: hydrALAZINE HCL 25 MG TAB PO SCH (08:15)
[2019-05-21] MEDS: AMIODARONE 200 MG TAB PO SCH (08:15)
[2019-05-21 08:22] VITALS: RESP 16; TEMP 98.7
[2019-05-21] MEDS ORDERED: MULTIVITAMINS, THERA 1 EACH TAB PO SCH (09:00)
[2019-05-21] MEDS ORDERED: ATORVASTATIN 40 MG TAB PO SCH (09:00)
[2019-05-21] MEDS ORDERED: TAMSULOSIN 0.4 MG CAP.ER.24H PO SCH (09:00)
[2019-05-21] MEDS ORDERED: CLOPIDOGREL 75 MG TAB PO SCH (09:00)
[2019-05-21] MEDS ORDERED: CHOLECALCIFEROL 1,000 UNIT TAB PO SCH (09:00)
[2019-05-21 11:22] VITALS: BMI 21.4
[2019-05-21 12:26] VITALS: BP 99/53; PULSE 57
--- NOTE | 2019-05-21 15:04 | P.CRDCN ---
History of Present Illness History of present illness: This is Dr. Hwang dictating a consult on this patient The patient was interviewed and examined by me IMPRESSION / ASSESSMENT: Uncontrolled hypertension greater than 200/100 mmHg Shortness of breath Acute dilated disease status post aortic stenting recently Paroxysmal atrial fibrillation with RVR on amiodarone now I'm unclear as to why his blood pressure was so high and he is taking his cardiac medications and now today his blood pressure is completely normal in fact it's a bit low PLAN: Patient refused to stay in the hospital even though asked him to stay for an extra day to monitor his blood pressure. Today his blood pressure is low normal. Hemoglobin is normal is been no drop in his hemoglobin while the CT is not the optimal study to assess the aortic stent graft is no abdominal bleeding noted no retroperitoneal bleeding If he is discharged today he should see Dr. Crawford who is his primary cable mechanic this Sunday for hypertension management No changes in his home medications at this time HPI Patient presented with shortness of breath. He also complaining of some nausea and abdominal pain and hence CT of the abdomen is was performed Today he has no abdominal pain. No dizziness lightheadedness no palpitations or chest pain looks very comfortable and wants to go home refuses to stay despite my urging to stay for an extra day to monitor blood pressure. ROS: No fever chills or rigors, no cough, phlegm or expectoration, + nausea, vomiting or diarrhea, no hematuria, dysuria, no musculoskeletal complaints, no strokes or seizures, no skin lesions. EXAMINATION: Afebrile 98.7F pulse rate in the 50s breathing nonlabored looks very comfortable sitting in bed comfortably blood pressure 118/68 mmHg 105/56. His mercury Over 53 mmHg Breath sounds are clear no rhonchi no crackles Abdomen is soft nontender no guarding no rigidity Heart sounds are normal regular Symptoms are warm no edema Normal circulation REVIEW OF LABS, ECG & MEDICAL DATA Hemoglobin 13.6, left lites normal LFT normal, cardiac enzymes normal Twelve-lead ECG shows low atrial focus, supraventricular rhythm normal ST segments Past Medical History Past Medical History: Atrial Fibrillation, Hypertension, Prostate Disorder Additional Past Medical History / Comment(s): BPH, AAA, CYST ON HIS BACK THAT IS INFECTED AND BEING TREATED BY DR JUAN-finished ANTIBIOTIC - DR MILLER aware), SEE CARDIOLOGY H & P. History of Any Multi-Drug Resistant Organisms: None Reported Past Surgical History: Tonsillectomy Additional Past Surgical History / Comment(s): COLONOSCOPY Past Anesthesia/Blood Transfusion Reactions: No Reported Reaction Past Psychological History: No Psychological Hx Reported Smoking Status: Current every day smoker Past Alcohol Use History: None Reported Past Drug Use History: None Reported - Past Family History Brother(s) Family Medical History: Cancer Medications and Allergies Home Medications Medication Instructions Recorded Confirmed Type Atorvastatin [Lipitor] 40 mg PO DAILY 04/11/19 05/20/19 History Cholecalciferol (Vitamin D3) 10,000 unit PO DAILY 04/11/19 05/20/19 History [Vitamin D3] Multivitamins, Thera [Multivitamin 1 tab PO DAILY 04/11/19 05/20/19 History (formulary)] Tamsulosin [Flomax] 0.4 mg PO DAILY 04/11/19 05/20/19 History Warfarin Sodium 4 mg PO HS 04/11/19 05/20/19 History Amiodarone [Cordarone] 200 mg PO BID #180 tab 05/16/19 05/20/19 Rx Clopidogrel [Plavix] 75 mg PO DAILY #90 tab 05/16/19 05/20/19 Rx Metoprolol Tartrate [Lopressor] 50 mg PO BID #180 tab 05/16/19 05/20/19 Rx hydrALAZINE HCL [Apresoline] 25 mg PO TID #180 tab 05/16/19 05/20/19 Rx Allergies Allergy/AdvReac Type Severity Reaction Status Date / Time No Known Allergies Allergy Verified 05/20/19 10:16 Physical Exam Vitals: Vital Signs Temp Pulse Pulse Pulse Resp BP BP 05/21/19 12:00 57 L 16 99/53 05/21/19 08:00 98.7 F 66 16 118/67 05/21/19 04:00 98.1 F 53 L 18 105/56 05/21/19 00:00 98.8 F 57 L 18 107/53 05/20/19 20:00 98.5 F 56 L 18 110/58 05/20/19 16:40 05/20/19 16:14 56 L 05/20/19 16:12 98.4 F 56 L 20 105/64 05/20/19 15:40 98.6 F 56 L 16 106/66 Pulse Ox 05/21/19 12:00 100 05/21/19 08:00 99 05/21/19 04:00 97 05/21/19 00:00 99 05/20/19 20:00 97 05/20/19 16:40 99 05/20/19 16:14 05/20/19 16:12 99 05/20/19 15:40 99 Intake and Output 05/21/19 05/21/19 05/21/19 06:59 14:59 22:59 Intake Total 600 360 Output Total 1900 400 Balance -1300 -40 Intake: Intake, IV Titration 600 Amount Sodium Chloride 0.9% 1, 600 000 ml @ 120 mls/hr IV . Q8H20M [facility] Rx#:[id number] Oral 360 Output: Urine 1900 400 Other: Voiding Method Urinal Urinal # Voids 4 # Bowel Movements 1 Weight 79.7 kg 79.7 kg Results 05/20/19 11:14 05/20/19 11:14 Current Medications Generic Name Dose Route Start Last Admin Trade Name Freq PRN Reason Stop Dose Admin Amiodarone HCl 200 mg 05/20/19 21:00 05/21/19 08:15 Cordarone PO 200 mg BID [facility] Administration Atorvastatin Calcium 40 mg 05/21/19 09:00 05/21/19 08:15 Lipitor PO 40 mg DAILY [facility] Administration Cholecalciferol 10,000 unit 05/21/19 09:00 05/21/19 08:14 Vitamin D3 (25 Mcg = 1000 Iu) PO 10,000 unit DAILY [facility] Administration Clopidogrel Bisulfate 75 mg 05/21/19 09:00 05/21/19 08:15 Plavix PO 75 mg DAILY [facility] Administration Hydralazine HCl 25 mg 05/20/19 16:00 05/21/19 08:15 Apresoline PO 25 mg TID [facility] Administration Sodium Chloride 1,000 mls @ 120 mls/hr 05/20/19 15:00 05/21/19 08:14 Saline 0.9% IV 120 mls/hr .Q8H20M [facility] Administration Metoprolol Tartrate 50 mg 05/20/19 21:00 05/21/19 08:14 Lopressor PO 50 mg BID [facility] Administration Multivitamins 1 each 05/21/19 09:00 05/21/19 08:14 Theragran PO 1 each DAILY [facility] Administration Naloxone HCl 0.2 mg 05/20/19 14:50 Narcan IV Q2M PRN Opioid Reversal Tamsulosin HCl 0.4 mg 05/21/19 09:00 05/21/19 08:15 Flomax PO 0.4 mg DAILY [facility] Administration Warfarin Sodium 4 mg 05/20/19 21:00 05/20/19 21:33 Coumadin PO 4 mg HS [facility] Administration Intake and Output 05/21/19 05/21/19 05/21/19 06:59 14:59 22:59 Intake Total 600 360 Output Total 1900 400 Balance -1300 -40 Intake: Intake, IV Titration 600 Amount Sodium Chloride 0.9% 1, 600 000 ml @ 120 mls/hr IV . Q8H20M [facility] Rx#:[id number] Oral 360 Output: Urine 1900 400 Other: Voiding Method Urinal Urinal # Voids 4 # Bowel Movements 1 Weight 79.7 kg 79.7 kg Patient Weight 05/22/19 06:59 Weight 79.7 kg 05/20/19 11:14 05/20/19 11:14
--- NOTE | 2019-05-21 15:25 | P.HPIM ---
History of Present Illness H&P Date: 05/21/19 Chief Complaint: Diffuse abdominal pain The patient is here for history of worsening abdominal pain. Seems to be more periumbilical. Food was not provocative. He states he has not been's doing a lot of active labor since having procedure done last week by cardiology. He developed paroxysmal atrial fibrillation at this time. Blood pressure was labile and after evaluation via the ER, he was appropriately admitted for abdominal pain. No palliative symptoms outside of rest. No bowel movement issues. However, intermittent constipation noted.No fever. Review of Systems Constitutional: Denies chills, Denies fever Eyes: denies blurred vision, denies pain Cardiovascular: Denies chest pain, Denies shortness of breath Respiratory: Denies cough Gastrointestinal: Reports as per HPI, Reports abdominal pain Musculoskeletal: Denies myalgias Neurological: Denies numbness, Denies weakness Endocrine: Denies fatigue, Denies weight change Past Medical History Past Medical History: Atrial Fibrillation, Hypertension, Prostate Disorder Additional Past Medical History / Comment(s): BPH, AAA, CYST ON HIS BACK THAT IS INFECTED AND BEING TREATED BY DR JUAN-finished ANTIBIOTIC - DR ANGELA wright ), SEE CARDIOLOGY H & P. History of Any Multi-Drug Resistant Organisms: None Reported Past Surgical History: Tonsillectomy Additional Past Surgical History / Comment(s): COLONOSCOPY Past Anesthesia/Blood Transfusion Reactions: No Reported Reaction Past Psychological History: No Psychological Hx Reported Smoking Status: Current every day smoker Past Alcohol Use History: None Reported Past Drug Use History: None Reported - Past Family History Brother(s) Family Medical History: Cancer Medications and Allergies Home Medications Medication Instructions Recorded Confirmed Type Atorvastatin [Lipitor] 40 mg PO DAILY 04/11/19 05/20/19 History Cholecalciferol (Vitamin D3) 10,000 unit PO DAILY 04/11/19 05/20/19 History [Vitamin D3] Multivitamins, Thera [Multivitamin 1 tab PO DAILY 04/11/19 05/20/19 History (formulary)] Tamsulosin [Flomax] 0.4 mg PO DAILY 04/11/19 05/20/19 History Warfarin Sodium 4 mg PO HS 04/11/19 05/20/19 History Amiodarone [Cordarone] 200 mg PO BID #180 tab 05/16/19 05/20/19 Rx Clopidogrel [Plavix] 75 mg PO DAILY #90 tab 05/16/19 05/20/19 Rx Metoprolol Tartrate [Lopressor] 50 mg PO BID #180 tab 05/16/19 05/20/19 Rx hydrALAZINE HCL [Apresoline] 25 mg PO TID #180 tab 05/16/19 05/20/19 Rx Allergies Allergy/AdvReac Type Severity Reaction Status Date / Time No Known Allergies Allergy Verified 05/20/19 10:16 Physical Exam Vitals: Vital Signs Temp Pulse Pulse Pulse Resp BP BP 05/21/19 12:00 57 L 16 99/53 05/21/19 08:00 98.7 F 66 16 118/67 05/21/19 04:00 98.1 F 53 L 18 105/56 05/21/19 00:00 98.8 F 57 L 18 107/53 05/20/19 20:00 98.5 F 56 L 18 110/58 05/20/19 16:40 05/20/19 16:14 56 L 05/20/19 16:12 98.4 F 56 L 20 105/64 05/20/19 15:40 98.6 F 56 L 16 106/66 Pulse Ox 05/21/19 12:00 100 05/21/19 08:00 99 05/21/19 04:00 97 05/21/19 00:00 99 05/20/19 20:00 97 05/20/19 16:40 99 05/20/19 16:14 05/20/19 16:12 99 05/20/19 15:40 99 Intake and Output 05/21/19 05/21/19 05/21/19 06:59 14:59 22:59 Intake Total 600 360 Output Total 1900 400 Balance -1300 -40 Intake: Intake, IV Titration 600 Amount Sodium Chloride 0.9% 1, 600 000 ml @ 120 mls/hr IV . Q8H20M [facility] Rx#:[id number] Oral 360 Output: Urine 1900 400 Other: Voiding Method Urinal Urinal # Voids 4 # Bowel Movements 1 Weight 79.7 kg 79.7 kg - Constitutional General appearance: no acute distress - EENT Eyes: EOMI - Neck Neck: no lymphadenopathy - Respiratory Respiratory: bilateral: CTA - Cardiovascular Rhythm: regular Heart sounds: normal: S1, S2 Abnormal Heart Sounds: no S3 Gallop - Gastrointestinal General gastrointestinal: normal bowel sounds, soft, no splenomegaly, no tenderness - Integumentary Integumentary: no cellulitis - Neurologic Neurologic: CNII-XII intact Results CBC & Chem 7: 05/20/19 11:14 05/20/19 11:14 Thrombosis Risk Factor Assmnt - Choose All That Apply Each Risk Factor Represents 2 Points: Age 61-74 years Thrombosis Risk Factor Assessment Total Risk Factor Score: 2 Thrombosis Risk Factor Assessment Level: Low Risk Assessment and Plan (1) Abdominal pain Status: Acute Code(s): R10.9 - UNSPECIFIED ABDOMINAL PAIN SNOMED Code(s): 38936326 (2) Arteriosclerosis of coronary artery Status: Acute Code(s): I25.10 - ATHSCL HEART DISEASE OF [place] CORONARY ARTERY W/O ANG PCTRS SNOMED Code(s): 06653349 (3) Weakness Status: Acute Code(s): R53.1 - WEAKNESS SNOMED Code(s): 74265883 Plan: Due to recent procedure, we will observe until cleared by cardiology. Advance diet as tolerated. Anticipate discharge in next 24-48 hours. Time with Patient: Greater than 30
--- NOTE | 2019-05-21 15:27 | P.DS ---
Providers Date of admission: 05/20/19 14:14 Expected date of discharge: 05/21/19 Attending physician: Romeo Gordon Consults: 05/20/19 14:52 Consult Physician Routine Consulting Provider: Daniel Jo Consult Reason/Comments: abdominal pain, weakness, labile BP Do you want consulting provider notified?: Yes Primary care physician: Romeo Gordon - Discharge Diagnosis(es) (1) Abdominal pain Status: Acute (2) Arteriosclerosis of coronary artery Status: Acute (3) Weakness Status: Acute Hospital Course: This is a discharge summary on a 64-year-old white male who recently had cardiology repair. Due to abdominal aortic aneurysm without rupture. The patient was then stabilized and was readmitted secondary to abdominal pain of unknown etiology. The patient states the pain was not related to eating or physical labor. The patient was then stabilized and tolerating diet and voiding without difficulty. Cardiology was consulted due to the recent procedure and he was discharged in stable condition to follow-up with me in about 1 week. Labo ratory examination did not reveal any issues. He has had history of paroxysmal atrial fibrillation which is now stable. Patient Condition at Discharge: Fair Plan - Discharge Summary New Discharge Prescriptions: Continue Warfarin Sodium 4 mg PO HS Tamsulosin [Flomax] 0.4 mg PO DAILY Multivitamins, Thera [Multivitamin (formulary)] 1 tab PO DAILY Atorvastatin [Lipitor] 40 mg PO DAILY Cholecalciferol (Vitamin D3) [Vitamin D3] 10,000 unit PO DAILY hydrALAZINE HCL [Apresoline] 25 mg PO TID #180 tab Amiodarone [Cordarone] 200 mg PO BID #180 tab Metoprolol Tartrate [Lopressor] 50 mg PO BID #180 tab Clopidogrel [Plavix] 75 mg PO DAILY #90 tab Discharge Medication List Atorvastatin [Lipitor] 40 mg PO DAILY 04/11/19 [History] Cholecalciferol (Vitamin D3) [Vitamin D3] 10,000 unit PO DAILY 04/11/19 [History] Multivitamins, Thera [Multivitamin (formulary)] 1 tab PO DAILY 04/11/19 [ History] Tamsulosin [Flomax] 0.4 mg PO DAILY 04/11/19 [History] Warfarin Sodium 4 mg PO HS 04/11/19 [History] Amiodarone [Cordarone] 200 mg PO BID #180 tab 05/16/19 [Rx] Clopidogrel [Plavix] 75 mg PO DAILY #90 tab 05/16/19 [Rx] Metoprolol Tartrate [Lopressor] 50 mg PO BID #180 tab 05/16/19 [Rx] hydrALAZINE HCL [Apresoline] 25 mg PO TID #180 tab 05/16/19 [Rx] Follow up Appointment(s)/Referral(s): Allie Crawford MD [STAFF PHYSICIAN] - 06/03/19 2:00 pm Romeo Gordon MD [Primary Care Provider] - 1-2 days Discharge Disposition: HOME SELF-CARE
== END 2019-05-21 15:14 | disposition home or self-care (01) ==
LOC: EC 09:59 → 3SCARD 14:14
PROVIDERS: ADMIT Family Medicine; ATTEND Family Medicine
DX: R10.9 Unspecified abdominal pain (principal); I10 Essential (primary) hypertension; I95.9 Hypotension, unspecified; R11.2 Nausea with vomiting, unspecified; I71.4 Abdominal aortic aneurysm, without rupture; I25.10 Atherosclerotic heart disease of native coronary artery without angina pectoris; K59.00 Constipation, unspecified; R53.1 Weakness; I48.0 Paroxysmal atrial fibrillation; N40.0 Benign prostatic hyperplasia without lower urinary tract symptoms; F17.200 Nicotine dependence, unspecified, uncomplicated; Z79.02 Long term (current) use of antithrombotics/antiplatelets; Z79.01 Long term (current) use of anticoagulants; Z79.899 Other long term (current) drug therapy; Z86.79 Personal history of other diseases of the circulatory system; Z95.828 Presence of other vascular implants and grafts; Z80.9 Family history of malignant neoplasm, unspecified
CPT/HCPCS: 96374; 96375; 99285; 36415; 93005; 80053; 83605; 83735; 84484; 85025; 85610; 85730; 81003; 71046; 74177; G0378 ×2; J2270; J0360; Q9967

== ENCOUNTER → 2019-06-27 | Outpatient (CLI) | payer BC ==
--- NOTE | 2019-06-27 11:42 | CT ---
EXAMINATION TYPE: CT chest wo con DATE OF EXAM: 06/27/2019 COMPARISON: HISTORY: Dyspnea, COPD, CAD, asthma. Patient complains of weakness after having stents placed x [address] DLP: 202.[address] of the chest was performed with lung and mediastinal window settings submitted. The la ck of contrast limits evaluation of the vascular, mediastinal and parenchymal structures including th e upper abdomen. LUNGS: Biapical emphysematous change and moderate biapical parenchymal scarring and pleural thickenin g. The remainder of the lungs are clear and free of but distinct nodule or mass. No pleural effusion or focal consolidation. MEDIASTINUM/ALEXANDRO: Thoracic aorta is of normal caliber with limited evaluation given lack of contrast . The heart is not enlarged. Coronary artery calcification identified. No evidence for mediastinal m ass. No lymph nodes greater than 1cm. UPPER ABDOMEN: No significant abnormality is seen. OTHER: No significant other abnormality. IMPRESSION: 1. Upper lobe emphysematous changes. 2. Upper lobe parenchymal scarring.
== END | disposition home or self-care (01) ==
LOC: RADCTMAIN 11:00
PROVIDERS: ATTEND Internal Medicine Pulmonary Disease
DX: J98.4 Other disorders of lung (principal); J44.9 Chronic obstructive pulmonary disease, unspecified; I25.10 Atherosclerotic heart disease of native coronary artery without angina pectoris; F17.200 Nicotine dependence, unspecified, uncomplicated
CPT/HCPCS: 71250

== ENCOUNTER → 2019-06-30 | Outpatient (CLI) | payer BC ==
--- NOTE | 2019-06-30 16:55 | CT ---
EXAMINATION TYPE: CT angio abd aorta w/Runoff DATE OF EXAM: 06/30/2019 COMPARISON: 05/20/2019 INDICATION: Follow up aortic aneurysm with stents DLP: 1292.1 mGycm, Automated exposure control for dose reduction was used. CONTRAST: 125 mL of Isovue 370. Precontrast imaging is performed. Study performed without Oral Contrast TECHNIQUE: Axial images were obtained from above the diaphragm to the pubic rami in the axial plane a t 5 mm thick sections. Reconstructed images are reviewed on the computer in the coronal plane. Pre and postcontrast imaging is performed FINDINGS: Limited CT sections are obtained the lung bases. The lung bases are clear. CT ABDOMEN: Liver: Normal Spleen: Normal Pancreas: Normal Adrenal glands: The adrenal glands are normal. Gallbladder: Normal Kidneys: No masses are evident. No hydronephrosis is present. Aorta: There is an abdominal aortic aneurysm. This has been stented. Following contrast contrast is w ithin the stent and the iliac limbs without endovascular leak identified. Inferior vena cava: Normal. CT PELVIS: Loops of bowel within the abdomen and pelvis are normal. Study is without oral contrast limiting bowel evaluation. Appendix: Normal as visualized. Urinary bladder: Normal. Genitourinary structures: Prostate is unremarkable Osseous structures: No suspicious lytic or sclerotic lesions. Degenerative disc changes are within th e lumbar spine. Endplate lucencies extending into the vertebral bodies are evident. IMPRESSIONS: 1. No endovascular leak post stenting of prior aortic aneurysm
== END ==
LOC: RADCTMAIN 14:36
PROVIDERS: ATTEND Internal Medicine Interventional Cardiology
DX: I71.4 Abdominal aortic aneurysm, without rupture (principal)
CPT/HCPCS: 75635; Q9967

== ENCOUNTER 2020-09-02 08:54 | Day surgery (SDC) | payer MEDICARE, OTHER ==
[2020-08-31 14:22] VITALS: BMI 21.9
[~2020-09-02 08:54] MED LIST changes: -DEXAMETHASONE SOD PHOSPHATE 10 MG/ML 1 ML VIAL IV ONE; -HYDROmorphone 0.5 MG/0.5 ML SYRINGE IVP PRN; +LACTATED RINGERS 1,000 ML IV SCH; -MIDAZOLAM 2 MG/2 ML VIAL IV PRN; -SCOPOLAMINE 1.5MG/72HR PATCH TRANSDERM ONE; -SODIUM CHLORIDE 0.9% 1,000 ML in EMPTY BAG 1 BAG IV ONE
[2020-09-02 09:16] VITALS: TEMP 97.9
[2020-09-02] MEDS ORDERED: LACTATED RINGERS 1,000 ML IV ONE (09:17)
--- NOTE | 2020-09-02 09:20 | P.GSHP ---
History of Present Illness H&P Date: 09/02/20 Chief Complaint: GI bleed This 65-year-old male with history of GI bleed. Patient presents today for colonoscopy. Past Medical History Past Medical History: Atrial Fibrillation, COPD, Hypertension, Prostate Disorder Additional Past Medical History / Comment(s): BPH, AAA, CYST on Back History of Any Multi-Drug Resistant Organisms: None Reported Past Surgical History: Tonsillectomy Additional Past Surgical History / Comment(s): COLONOSCOPY Past Anesthesia/Blood Transfusion Reactions: No Reported Reaction Smoking Status: Current every day smoker - Past Family History Brother(s) Family Medical History: Cancer Medications and Allergies Home Medications Medication Instructions Recorded Confirmed Type Atorvastatin [Lipitor] 40 mg PO DAILY 04/11/19 08/31/20 History Cholecalciferol (Vitamin D3) 10,000 unit PO DAILY 04/11/19 08/31/20 History [Vitamin D3] Multivitamins, Thera [Multivitamin 1 tab PO DAILY 04/11/19 08/31/20 History (formulary)] Tamsulosin [Flomax] 0.4 mg PO DAILY 04/11/19 08/31/20 History Clopidogrel [Plavix] 75 mg PO DAILY #90 tab 05/16/19 08/31/20 Rx Apixaban [Eliquis] 5 mg PO BID 08/31/20 08/31/20 History Metoprolol Tartrate [Lopressor] 25 mg PO DAILY 08/31/20 08/31/20 History Pantoprazole Sodium [Protonix] 40 mg PO BID 08/31/20 08/31/20 History hydrALAZINE HCL [Apresoline] 25 mg PO BID 08/31/20 08/31/20 History Allergies Allergy/AdvReac Type Severity Reaction Status Date / Time No Known Allergies Allergy Verified 08/31/20 14:07 Surgical - Exam Vital Signs Temp Pulse Resp BP Pulse Ox 97.9 F 88 18 129/81 98 09/02/20 09:15 09/02/20 09:15 09/02/20 09:15 09/02/20 09:15 09/02/20 09:15 - General well developed, well nourished, no distress - Eyes PERRL - ENT normal pinna - Neck no masses - Respiratory normal expansion - Cardiovascular Rhythm: regular - Abdomen Abdomen: soft, non tender Assessment and Plan Assessment: GI bleed. We'll perform colonoscopy
[2020-09-02] MEDS ORDERED: PROPOFOL 10 MG/ML 20 ML VIAL IV ONE (09:23)
[2020-09-02 10:04] VITALS: BP 174/71; PULSE 61; RESP 17
--- NOTE | 2020-09-02 10:16 | P.OP ---
Date of Procedure: 09/02/20 Preoperative Diagnosis: GI bleed Postoperative Diagnosis: External hemorrhoids Right colon polyp Procedure(s) Performed: Colonoscopy Anesthesia: MAC Surgeon: Jeovanny Charles Pathology: other (Right colon polyp) Condition: stable Disposition: PACU Description of Procedure: The patient's placed on the endoscopy table in the lateral position. He received IV sedation. Digital rectal exam performed which revealed external hemorrhoids. The flexible colonoscope was then placed patient anus passed throughout the entire colon. The ileocecal valve was visualized. The cecum appeared normal. In the right colon was small sessile polyp was removed with the cold forcep. The remainder the ascending colon, transverse colon descending colon and sigmoid colon appeared normal. Scope was brought back the rectum this appeared normal. Scope withdrawn for patient. Is presumed patient's rectal bleeding is due to hemorrhoids
== END 2020-09-02 10:51 | disposition home or self-care (01) ==
LOC: ORWHC2ENDO 08:54
PROVIDERS: ATTEND Surgery
DX: D12.2 Benign neoplasm of ascending colon (principal); K64.4 Residual hemorrhoidal skin tags; I48.91 Unspecified atrial fibrillation; J44.9 Chronic obstructive pulmonary disease, unspecified; I10 Essential (primary) hypertension; N40.0 Benign prostatic hyperplasia without lower urinary tract symptoms; I71.4 Abdominal aortic aneurysm, without rupture; L72.9 Follicular cyst of the skin and subcutaneous tissue, unspecified; I73.9 Peripheral vascular disease, unspecified; F17.200 Nicotine dependence, unspecified, uncomplicated; Z90.89 Acquired absence of other organs; Z98.890 Other specified postprocedural states; Z79.899 Other long term (current) drug therapy; Z79.02 Long term (current) use of antithrombotics/antiplatelets; Z79.01 Long term (current) use of anticoagulants; Z80.9 Family history of malignant neoplasm, unspecified
CPT/HCPCS: 88305; 45380; J2704

== ENCOUNTER 2020-09-02 12:05 | Observation (INO) | payer MEDICARE, OTHER ==
[2020-09-02] MEDS ORDERED: ONDANSETRON 4 MG/2 ML VIAL IVP STA (12:39)
[2020-09-02] MEDS ORDERED: SODIUM CHLORIDE 0.9% 500 ML 500 ML IV STA (12:39)
[2020-09-02] MEDS ORDERED: PANTOPRAZOLE 40 MG/10 ML VIAL IVP STA (12:39)
[2020-09-02] MEDS ORDERED: SODIUM CHLORIDE 0.9% 1,000 ML IV STA (12:39)
[2020-09-02] MEDS ORDERED: IOPAMIDOL CONTRAST (ORAL USE) VIAL PO PRN (12:39)
[2020-09-02] MEDS ORDERED: HYDROmorphone 1 MG/ML 1 ML SYRINGE IVP STA (12:39)
--- NOTE | 2020-09-02 12:42 | ED ---
General Adult HPI - General Chief complaint: Abdominal Pain Stated complaint: post colonoscopy N/V/D, shaking Time Seen by Provider: 09/02/20 12:27 Source: patient, family, RN notes reviewed Mode of arrival: wheelchair Limitations: no limitations - History of Present Illness Initial comments: Patient is a pleasant 65-year-old male presenting to the emergency department after colonoscopy. Colonoscopy was done this morning. Since that time patient has not felt well. Patient has been sweaty and shaky. Patient has had nausea and vomiting. Patient does have abdominal discomfort described as cramping that was 3/10 however now is more moderate. Patient only had minimal abdominal discomfort prior to colonoscopy this morning. - Related Data Home Medications Medication Instructions Recorded Confirmed Atorvastatin [Lipitor] 40 mg PO DAILY 04/11/19 09/02/20 Multivitamins, Thera [Multivitamin 1 tab PO DAILY 04/11/19 09/02/20 (formulary)] Tamsulosin [Flomax] 0.4 mg PO DAILY 04/11/19 09/02/20 Apixaban [Eliquis] 5 mg PO BID 08/31/20 09/02/20 Pantoprazole Sodium [Protonix] 40 mg PO BID 08/31/20 09/02/20 hydrALAZINE HCL [Apresoline] 25 mg PO BID 08/31/20 09/02/20 Cholecalciferol [Vitamin D3 (25 5,000 unit PO DAILY 09/02/20 09/02/20 Mcg = 1000 Iu)] Metoprolol Succinate (ER) [Toprol 12.5 mg PO BID 09/02/20 09/02/20 Xl] Previous Rx's Medication Instructions Recorded Clopidogrel [Plavix] 75 mg PO DAILY #90 tab 05/16/19 Allergies Allergy/AdvReac Type Severity Reaction Status Date / Time No Known Allergies Allergy Verified 09/02/20 13:27 Review of Systems ROS Statement: Those systems with pertinent positive or pertinent negative responses have been documented in the HPI. ROS Other: All systems not noted in ROS Statement are negative. Constitutional: Reports: chills. Denies: fever Eyes: Denies: eye pain ENT: Denies: ear pain Respiratory: Denies: cough Cardiovascular: Denies: chest pain Endocrine: Denies: fatigue Gastrointestinal: Reports: abdominal pain, nausea, vomiting Genitourinary: Denies: dysuria Musculoskeletal: Denies: back pain Skin: Denies: rash Neurological: Denies: weakness Past Medical History Past Medical History: Atrial Fibrillation, COPD, Hypertension, Prostate Disorder Additional Past Medical History / Comment(s): BPH, AAA, CYST on Back History of Any Multi-Drug Resistant Organisms: None Reported Past Surgical History: Tonsillectomy Additional Past Surgical History / Comment(s): COLONOSCOPY Past Anesthesia/Blood Transfusion Reactions: No Reported Reaction Past Psychological History: No Psychological Hx Reported Smoking Status: Current every day smoker Past Alcohol Use History: Rare Past Drug Use History: None Reported - Past Family History Brother(s) Family Medical History: Cancer General Exam Limitations: no limitations General appearance: alert Head exam: Present: normocephalic Eye exam: Present: normal appearance Neck exam: Present: normal inspection Respiratory exam: Present: normal lung sounds bilaterally Cardiovascular Exam: Present: regular rate, normal rhythm GI/Abdominal exam: Present: soft, tenderness (Mild diffuse tenderness). Absent: distended, guarding, rebound, rigid Extremities exam: Present: normal inspection Neurological exam: Present: alert Psychiatric exam: Present: normal affect, normal mood Skin exam: Present: normal color Course Vital Signs 09/02/20 09/02/20 12:18 14:36 Temperature 97.1 F L Pulse Rate 52 L 60 Respiratory 26 H 18 Rate Blood Pressure 191/92 180/90 O2 Sat by Pulse 100 95 Oximetry EKG Findings - EKG Comments: EKG Findings:: Size pericardial 51. Premature atrial complex. WA 150. QRS 84. QT 452. QTC 416. Normal axis. Normal QRS. No acute ST change. Medical Decision Making - Medical Decision Making Patient reevaluated and is somewhat improved. Patient still does not feel well however has a difficult time describing what is bothering him. Patient and family updated on results. Case was discussed with Dr. Charles who will keep patient for observation. Consult will be placed for Dr. Gordon. - Lab Data Result diagrams: 09/02/20 12:50 09/02/20 12:50 Lab Results 09/02/20 09/02/20 09/02/20 Range/Units 12:50 12:50 12:50 WBC 8.9 (3.8-10.6) k/uL RBC 5.01 (4.30-5.90) m/uL Hgb 16.5 (13.0-17.5) gm/dL Hct 50.1 (39.0-53.0) % MCV 100.1 H (80.0-100.0) fL MCH 32.9 (25.0-35.0) pg MCHC 32.8 (31.0-37.0) g/dL RDW 12.8 (11.5-15.5) % Plt Count 244 (150-450) k/uL Neutrophils % 74 % Lymphocytes % 18 % Monocytes % 5 % Eosinophils % 1 % Basophils % 0 % Neutrophils # 6.6 (1.3-7.7) k/uL Lymphocytes # 1.6 (1.0-4.8) k/uL Monocytes # 0.5 (0-1.0) k/uL Eosinophils # 0.1 (0-0.7) k/uL Basophils # 0.0 (0-0.2) k/uL PT 9.9 (9.0-12.0) sec INR 0.9 (<1.2) APTT 21.7 L (22.0-30.0) sec Sodium (137-145) mmol/L Potassium (3.5-5.1) mmol/L Chloride (98-107) mmol/L Carbon Dioxide (22-30) mmol/L Anion Gap mmol/L BUN (9-20) mg/dL Creatinine (0.66-1.25) mg/dL Est GFR (CKD-EPI)AfAm (>60 ml/min/1.73 sqM) Est GFR (CKD-EPI)NonAf (>60 ml/min/1.73 sqM) Glucose (74-99) mg/dL Calcium (8.4-10.2) mg/dL Total Bilirubin (0.2-1.3) mg/dL AST (17-59) U/L ALT (4-49) U/L Alkaline Phosphatase (38-126) U/L Troponin I (0.000-0.034) ng/mL Total Protein (6.3-8.2) g/dL Albumin (3.5-5.0) g/dL Amylase (30-110) U/L Lipase (23-300) U/L Urine Color Yellow Urine Appearance Clear (Clear) Urine pH 6.0 (5.0-8.0) Ur Specific [place] 1.032 (1.001-1.035) Urine Protein Trace H (Negative) Urine Glucose (UA) Negative (Negative) Urine Ketones 3+ H (Negative) Urine Blood Negative (Negative) Urine Nitrite Negative (Negative) Urine Bilirubin Negative (Negative) Urine Urobilinogen <2.0 (<2.0) mg/dL Ur Leukocyte Esterase Negative (Negative) 09/02/20 09/02/20 Range/Units 12:50 12:50 WBC (3.8-10.6) k/uL RBC (4.30-5.90) m/uL Hgb (13.0-17.5) gm/dL Hct (39.0-53.0) % MCV (80.0-100.0) fL MCH (25.0-35.0) pg MCHC (31.0-37.0) g/dL RDW (11.5-15.5) % Plt Count (150-450) k/uL Neutrophils % % Lymphocytes % % Monocytes % % Eosinophils % % Basophils % % Neutrophils # (1.3-7.7) k/uL Lymphocytes # (1.0-4.8) k/uL Monocytes # (0-1.0) k/uL Eosinophils # (0-0.7) k/uL Basophils # (0-0.2) k/uL PT (9.0-12.0) sec INR (<1.2) APTT (22.0-30.0) sec Sodium 137 (137-145) mmol/L Potassium 4.4 (3.5-5.1) mmol/L Chloride 104 (98-107) mmol/L Carbon Dioxide 22 (22-30) mmol/L Anion Gap 11 mmol/L BUN 21 H (9-20) mg/dL Creatinine 0.89 (0.66-1.25) mg/dL Est GFR (CKD-EPI)AfAm >90 (>60 ml/min/1.73 sqM) Est GFR (CKD-EPI)NonAf >90 (>60 ml/min/1.73 sqM) Glucose 108 H (74-99) mg/dL Calcium 10.1 (8.4-10.2) mg/dL Total Bilirubin 1.2 (0.2-1.3) mg/dL AST 35 (17-59) U/L ALT 25 (4-49) U/L Alkaline Phosphatase 137 H (38-126) U/L Troponin I <0.012 (0.000-0.034) ng/mL Total Protein 7.6 (6.3-8.2) g/dL Albumin 4.6 (3.5-5.0) g/dL Amylase 74 (30-110) U/L Lipase 61 (23-300) U/L Urine Color Urine Appearance (Clear) Urine pH (5.0-8.0) Ur Specific [place] (1.001-1.035) Urine Protein (Negative) Urine Glucose (UA) (Negative) Urine Ketones (Negative) Urine Blood (Negative) Urine Nitrite (Negative) Urine Bilirubin (Negative) Urine Urobilinogen (<2.0) mg/dL Ur Leukocyte Esterase (Negative) - Radiology Data Radiology results: report reviewed (Computed tomography scan of the chest negative for pulmonary embolism. Computed tomography scan abdomen pelvis shows no acute process) Disposition Clinical Impression: Abdominal pain Disposition: ADMITTED IP TO THIS HOSP Is patient prescribed a controlled substance at d/c from ED?: No Referrals: Romeo Gordon MD [Primary Care Provider] - 1-2 days Decision Time: 15:18
[2020-09-02 13:07] LABS: Basophils % (A) 0 %; Eosinophils # (A) 0.1 k/uL (0-0.7); Eosinophils % (A) 1 %; HCT 50.1 % (39.0-53.0); HGB 16.5 gm/dL (13.0-17.5); Lymphocytes # (A) 1.6 k/uL (1.0-4.8); Lymphocytes % (A) 18 %; MCH 32.9 pg (25.0-35.0); MCHC 32.8 g/dL (31.0-37.0); MCV 100.1 fL (80.0-100.0); Mean Platelet Volume 7.6; Monocytes # (A) 0.5 k/uL (0-1.0); Monocytes % (A) 5 %; Neutrophils # (A) 6.6 k/uL (1.3-7.7); Neutrophils % (A) 74 %; Platelet Count 244 k/uL (150-450); RBC 5.01 m/uL (4.30-5.90); RDW 12.8 % (11.5-15.5); WBC 8.9 k/uL (3.8-10.6)
[2020-09-02 13:16] LABS: ALT 25 U/L (4-49); AST 35 U/L (17-59); African American GFR (CKD) >90 (>60 ml/min/1.73 sqM); Albumin 4.6 g/dL (3.5-5.0); Alkaline Phosphatase 137 U/L (38-126); Amylase 74 U/L (30-110); Anion Gap 11 mmol/L; Blood Urea Nitrogen 21 mg/dL (9-20); Calcium 10.1 mg/dL (8.4-10.2); Carbon Dioxide 22 mmol/L (22-30); Chloride 104 mmol/L (98-107); Glucose 108 mg/dL (74-99); Lipase 61 U/L (23-300); Non-African American GFR(CKD) >90 (>60 ml/min/1.73 sqM); Potassium 4.4 mmol/L (3.5-5.1); Sodium 137 mmol/L (137-145); Total Bilirubin 1.2 mg/dL (0.2-1.3); Total Protein 7.6 g/dL (6.3-8.2)
[2020-09-02 13:25] LABS: INR 0.9 (<1.2); Prothrombin Time 9.9 sec (9.0-12.0)
[2020-09-02 13:32] LABS: Partial Thromboplastin Time 21.7 sec (22.0-30.0)
--- NOTE | 2020-09-02 13:40 | XR ---
EXAMINATION TYPE: XR chest 2V DATE OF EXAM: 09/02/2020 CLINICAL HISTORY: abdominal pain. TECHNIQUE: Frontal and lateral view of the chest. COMPARISON: Chest radiograph 05/20/2019 chest radiograph FINDINGS: Lungs are hyperinflated with emphysematous change. The cardiomediastinal silhouette is wit hin normal limits for size. Pulmonary vasculature is normal. There is no focal air space opacity, ple ural effusion, or pneumothorax seen. The osseous structures are intact. IMPRESSION: No acute cardiopulmonary process.
[2020-09-02 14:22] LABS: Appearance,Urine Clear (Clear); Bilirubin,Urine Negative (Negative); Blood,Urine Negative (Negative); Color,Urine Yellow; Glucose,Urine (UA) Negative (Negative); Ketones,Urine 3+ (Negative); Leukocyte Esterase,Urine Negative (Negative); Nitrite,Urine Negative (Negative); Protein,Urine Trace (Negative); Specific Gravity,Urine 1.032 (1.001-1.035); Urobilinogen,Urine <2.0 mg/dL (<2.0)
--- NOTE | 2020-09-02 14:37 | CT ---
EXAMINATION TYPE: CT angio chest DATE OF EXAM: 09/02/2020 COMPARISON: 06/27/2019 HISTORY: 65-year-old male, Post colonoscopy, NVD, Shaking, Dyspnea TECHNIQUE: Contiguous axial scanning of the chest performed with IV Contrast, patient injected with 1 00 ml mL of Isovue 300. Coronal/sagittal MIP reconstructions performed. CT DLP: 1014.8 mGycm Automated exposure control for dose reduction was used. FINDINGS: Heart normal size without pericardial effusion. No flattening of the interventricular septum or reflu x of contrast into the hepatic veins. Scattered three-vessel coronary artery calcifications are prese nt. Aorta normal caliber with mild atherosclerotic arch calcifications and conventional arch vessel branc jesse anatomy. Stable soft tissue thickening along the right tracheoesophageal recess, axial image 24. Stable 1.1 cm mildly enlarged precarinal lymph node. Satisfactory opacification of the pulmonary arterial system without evidence for pulmonary embolus. Moderate centrilobular emphysema especially in the upper lungs. Prominent biapical pleural parenchyma l scarring, unchanged from 06/27/2019. Additional patchy and irregular subpleural opacities in the pos terior aspect of the upper lungs remains unchanged. 4 mm lateral basilar left lower lobe pulmonary nodule, axial image 124 is unchanged. No consolidation or pleural effusion. Abdomen reported separately. Bones: Moderate degenerative disc disease throughout the thoracic spine. No osseous destructive proce ss. IMPRESSION: 1. NO EVIDENCE FOR PULMONARY EMBOLUS. 2. COPD WITH MODERATE EMPHYSEMA. 3. PLEURAL PARENCHYMAL SCARRING AND ADDITIONAL SCATTERED IRREGULAR AREAS OF SUBPLEURAL SCARRING IN TH E UPPER LUNGS REMAINS UNCHANGED FROM 06/27/2019. 4. A COUPLE MILDLY ENLARGED MEDIASTINAL LYMPH NODES MEASURING UP TO 1.1 CM ALSO REMAIN UNCHANGED. 5. CAD.
--- NOTE | 2020-09-02 14:43 | CT ---
EXAMINATION TYPE: CT abdomen pelvis w con DATE OF EXAM: 09/02/2020 COMPARISON: Prior CT dated 06/30/2019, 05/20/2019 HISTORY: Abdominal pain, Post colonoscopy, NVD, shaking, dyspnea CT DLP: 1014.8 mGycm Automated exposure control for dose reduction was used. TECHNIQUE: Helical acquisition of images from the lung bases through the pelvis have been completed. CONTRAST: Performed with Oral Contrast and with IV Contrast, patient injected with 100 ml mL of Isovue 300. FINDINGS: No evident pneumoperitoneum. LUNG BASES: No significant abnormality is appreciated. AORTA: Patient shows aortic stent graft in place, common iliac artery on the right is aneurysmal at 2.5 cm. No evident endoleak. There is enhancement within the graft and both limbs of the graft. Abdom inal aortic aneurysm measures 4.5 cm. LIVER/GB: No significant abnormality is appreciated. PANCREAS: No significant abnormality is seen. SPLEEN: No significant abnormality is seen. ADRENALS: No significant abnormality is seen. KIDNEYS: No significant abnormality is seen. REPRODUCTIVE ORGANS: Calcifications associated with the prostate gland, BOWEL: No significant abnormality is seen,visualized portions of the appendix are normal. FREE AIR: No Free Air visible. ASCITES: None visible. PELVIC ADENOPATHY: None visualized. RETROPERITONEAL ADENOPATHY: No Retroperitoneal Adenopathy visible. URINARY BLADDER: No significant abnormality is seen. OSSEOUS STRUCTURES: No significant abnormality is seen. IMPRESSION: NO EVIDENT COMPLICATION STATUS POST COLONOSCOPY.
[2020-09-02] MEDS ORDERED: ONDANSETRON 4 MG/2 ML VIAL IVP PRN (15:18)
[2020-09-02] MEDS ORDERED: METOPROLOL SUCCINATE (ER) 25 MG TAB.ER.24H PO STA (15:18)
[2020-09-02] MEDS ORDERED: NALOXONE 0.4 MG/ML 1 ML VIAL IV PRN (15:18)
[2020-09-02] MEDS ORDERED: HYDROmorphone 0.5 MG/0.5 ML SYRINGE IVP PRN (15:18)
[2020-09-02] MEDS ORDERED: LORazepam 2 MG/ML INJ IV PRN (15:18)
[2020-09-02] MEDS ORDERED: hydrALAZINE HCL 25 MG TAB PO STA (15:19)
[2020-09-02] MEDS: SODIUM CHLORIDE 0.9% 1,000 ML IV SCH (16:26)
[2020-09-02] MEDS: APIXABAN 5 MG TAB PO SCH (20:12)
[2020-09-02] MEDS: PANTOPRAZOLE 40 MG TABLET PO SCH (20:12)
[2020-09-02] MEDS: hydrALAZINE HCL 25 MG TAB PO SCH (20:15)
[2020-09-02] MEDS: METOPROLOL SUCCINATE (ER) 25 MG TAB.ER.24H PO SCH (20:15)
[2020-09-03] MEDS: SODIUM CHLORIDE 0.9% 1,000 ML IV SCH ×2 (00:41→07:38)
[2020-09-03 05:18] LABS: Basophils % (A) 0 %; Eosinophils % (A) 0 %; HCT 44.3 % (39.0-53.0); HGB 14.8 gm/dL (13.0-17.5); Lymphocytes # (A) 2.5 k/uL (1.0-4.8); Lymphocytes % (A) 25 %; MCH 33.3 pg (25.0-35.0); MCHC 33.4 g/dL (31.0-37.0); MCV 99.7 fL (80.0-100.0); Mean Platelet Volume 7.5; Monocytes # (A) 0.9 k/uL (0-1.0); Monocytes % (A) 9 %; Neutrophils # (A) 6.3 k/uL (1.3-7.7); Neutrophils % (A) 64 %; Platelet Count 223 k/uL (150-450); RBC 4.44 m/uL (4.30-5.90); RDW 12.2 % (11.5-15.5); WBC 9.8 k/uL (3.8-10.6)
[2020-09-03 05:41] LABS: ALT 20 U/L (4-49); AST 35 U/L (17-59); African American GFR (CKD) >90 (>60 ml/min/1.73 sqM); Albumin 3.7 g/dL (3.5-5.0); Alkaline Phosphatase 95 U/L (38-126); Anion Gap 6 mmol/L; Blood Urea Nitrogen 21 mg/dL (9-20); Calcium 8.9 mg/dL (8.4-10.2); Carbon Dioxide 25 mmol/L (22-30); Chloride 105 mmol/L (98-107); Glucose 89 mg/dL (74-99); Non-African American GFR(CKD) 87 (>60 ml/min/1.73 sqM); Sodium 136 mmol/L (137-145); Total Bilirubin 0.9 mg/dL (0.2-1.3); Total Protein 6.3 g/dL (6.3-8.2)
[2020-09-03] MEDS: PANTOPRAZOLE 40 MG TABLET PO SCH (07:37)
[2020-09-03] MEDS: METOPROLOL SUCCINATE (ER) 25 MG TAB.ER.24H PO SCH (07:37)
[2020-09-03] MEDS: APIXABAN 5 MG TAB PO SCH (07:37)
[2020-09-03] MEDS: hydrALAZINE HCL 25 MG TAB PO SCH (07:37)
[2020-09-03 07:42] VITALS: BP 116/54; PULSE 67; RESP 14; TEMP 98.3
--- NOTE | 2020-09-03 08:02 | P.HPIM ---
History of Present Illness H&P Date: 09/03/20 Chief Complaint: Nausea This is a history of physical 65-year-old male essentially postop day #1 for colonoscopy. The patient had significant postoperative palpitations or nausea and vomiting and was admitted essentially for observation. He hasn't underlying history of COPD Review of Systems Constitutional: Denies chills, Denies fever Eyes: denies blurred vision, denies pain Ears, nose, mouth and throat: Denies headache, Denies sore throat Cardiovascular: Denies chest pain, Denies shortness of breath Respiratory: Denies cough Gastrointestinal: Denies abdominal pain, Denies diarrhea, Denies nausea, Denies vomiting Past Medical History Past Medical History: Atrial Fibrillation, COPD, Hypertension, Prostate Disorder Additional Past Medical History / Comment(s): BPH, AAA, CYST on Back History of Any Multi-Drug Resistant Organisms: None Reported Past Surgical History: Tonsillectomy Additional Past Surgical History / Comment(s): COLONOSCOPY Past Anesthesia/Blood Transfusion Reactions: No Reported Reaction Past Psychological History: No Psychological Hx Reported Smoking Status: Current every day smoker Past Alcohol Use History: Rare Additional Past Alcohol Use History / Comment(s): SMOKES 1 PPD OR MORE, SMOKING OFF AND ON FOR 40 YEARS OR MORE. Past Drug Use History: None Reported - Past Family History Brother(s) Family Medical History: Cancer Medications and Allergies Home Medications Medication Instructions Recorded Confirmed Type Atorvastatin [Lipitor] 40 mg PO DAILY 04/11/19 09/02/20 History Multivitamins, Thera [Multivitamin 1 tab PO DAILY 04/11/19 09/02/20 History (formulary)] Tamsulosin [Flomax] 0.4 mg PO DAILY 04/11/19 09/02/20 History Clopidogrel [Plavix] 75 mg PO DAILY #90 tab 05/16/19 09/02/20 Rx Apixaban [Eliquis] 5 mg PO BID 08/31/20 09/02/20 History Pantoprazole Sodium [Protonix] 40 mg PO BID 08/31/20 09/02/20 History hydrALAZINE HCL [Apresoline] 25 mg PO BID 08/31/20 09/02/20 History Cholecalciferol [Vitamin D3 (25 5,000 unit PO DAILY 09/02/20 09/02/20 History Mcg = 1000 Iu)] Metoprolol Succinate (ER) [Toprol 12.5 mg PO BID 09/02/20 09/02/20 History Xl] Allergies Allergy/AdvReac Type Severity Reaction Status Date / Time No Known Allergies Allergy Verified 09/02/20 13:27 Physical Exam Vitals: Vital Signs Temp Pulse Pulse Resp BP BP Pulse Ox 09/03/20 07:41 98.3 F 67 14 116/54 97 09/03/20 03:00 99.2 F 71 16 121/56 98 09/02/20 19:25 98.7 F 75 16 110/67 98 09/02/20 16:30 97.8 F 57 L 16 198/72 100 09/02/20 14:36 60 18 180/90 95 09/02/20 12:18 97.1 F L 52 L 26 H 191/92 100 Intake and Output 09/02/20 09/03/20 09/03/20 22:59 06:59 14:59 Other: Voiding Method Toilet Toilet Toilet # Voids 1 1 Weight 77.111 kg - Constitutional General appearance: no acute distress - EENT Eyes: EOMI - Neck Neck: no lymphadenopathy - Respiratory Respiratory: bilateral: CTA - Cardiovascular Rhythm: regular Heart sounds: normal: S1, S2 Abnormal Heart Sounds: no S3 Gallop - Gastrointestinal General gastrointestinal: soft, no tenderness - Neurologic Neurologic: CNII-XII intact Results CBC & Chem 7: 09/03/20 04:36 09/03/20 04:36 Labs: Abnormal Lab Results - Last 24 Hours (Table) 09/02/20 09/02/20 09/02/20 Range/Units 12:50 12:50 12:50 MCV 100.1 H (80.0-100.0) fL APTT 21.7 L (22.0-30.0) sec Sodium (137-145) mmol/L BUN (9-20) mg/dL Glucose (74-99) mg/dL Alkaline Phosphatase (38-126) U/L Urine Protein Trace H (Negative) Urine Ketones 3+ H (Negative) 09/02/20 09/03/20 Range/Units 12:50 04:36 MCV (80.0-100.0) fL APTT (22.0-30.0) sec Sodium 136 L (137-145) mmol/L BUN 21 H 21 H (9-20) mg/dL Glucose 108 H (74-99) mg/dL Alkaline Phosphatase 137 H (38-126) U/L Urine Protein (Negative) Urine Ketones (Negative) Thrombosis Risk Factor Assmnt - Choose All That Apply Each Risk Factor Represents 2 Points: Age 61-74 years Thrombosis Risk Factor Assessment Total Risk Factor Score: 2 Thrombosis Risk Factor Assessment Level: Low Risk Assessment and Plan (1) Abdominal pain Current Visit: Yes Status: Acute Code(s): R10.9 - UNSPECIFIED ABDOMINAL PAIN SNOMED Code(s): 49454932 (2) Hypotension Current Visit: No Status: Acute Code(s): I95.9 - HYPOTENSION, UNSPECIFIED SNOMED Code(s): 09658585 (3) Weakness Current Visit: No Status: Acute Code(s): R53.1 - WEAKNESS SNOMED Code(s): 70224009 Plan: Most likely anesthesia related side effects. Reassurance and observation. Anticipate discharge later today once cleared by surgery. Reconcile medications. Prognosis excellent.
[2020-09-03] MEDS ORDERED: CHOLECALCIFEROL 1,000 UNIT TAB PO SCH (09:00)
[2020-09-03] MEDS ORDERED: TAMSULOSIN 0.4 MG CAP.ER.24H PO SCH (09:00)
[2020-09-03] MEDS ORDERED: ATORVASTATIN 40 MG TAB PO SCH (09:00)
[2020-09-03] MEDS ORDERED: MULTIVITAMINS, THERA 1 EACH TAB PO SCH (09:00)
[2020-09-03] MEDS ORDERED: PANTOPRAZOLE 40 MG/10 ML VIAL IV SCH (09:00)
[2020-09-03] MEDS ORDERED: CLOPIDOGREL 75 MG TAB PO SCH (09:00)
--- NOTE | 2020-09-03 09:25 | P.GSHP ---
History of Present Illness H&P Date: 09/03/20 Chief Complaint: Nausea, abdominal pain This is a 65-year-old male was admitted through the emergency room last night. Patient undergone previous colonoscopy yesterday. Patient states he felt well with a possible however when he he came home. He developed significant nausea abdominal pain distention. Patient's admitted back through the emergency room he received fluid hydration and Zofran. Currently feels well this morning. Past Medical History Past Medical History: Atrial Fibrillation, COPD, Hypertension, Prostate Disorder Additional Past Medical History / Comment(s): BPH, AAA, CYST on Back History of Any Multi-Drug Resistant Organisms: None Reported Past Surgical History: Tonsillectomy Additional Past Surgical History / Comment(s): COLONOSCOPY Past Anesthesia/Blood Transfusion Reactions: No Reported Reaction Past Psychological History: No Psychological Hx Reported Smoking Status: Current every day smoker Past Alcohol Use History: Rare Additional Past Alcohol Use History / Comment(s): SMOKES 1 PPD OR MORE, SMOKING OFF AND ON FOR 40 YEARS OR MORE. Past Drug Use History: None Reported - Past Family History Brother(s) Family Medical History: Cancer Medications and Allergies Home Medications Medication Instructions Recorded Confirmed Type Atorvastatin [Lipitor] 40 mg PO DAILY 04/11/19 09/02/20 History Multivitamins, Thera [Multivitamin 1 tab PO DAILY 04/11/19 09/02/20 History (formulary)] Tamsulosin [Flomax] 0.4 mg PO DAILY 04/11/19 09/02/20 History Clopidogrel [Plavix] 75 mg PO DAILY #90 tab 05/16/19 09/02/20 Rx Apixaban [Eliquis] 5 mg PO BID 08/31/20 09/02/20 History Pantoprazole Sodium [Protonix] 40 mg PO BID 08/31/20 09/02/20 History hydrALAZINE HCL [Apresoline] 25 mg PO BID 08/31/20 09/02/20 History Cholecalciferol [Vitamin D3 (25 5,000 unit PO DAILY 09/02/20 09/02/20 History Mcg = 1000 Iu)] Metoprolol Succinate (ER) [Toprol 12.5 mg PO BID 09/02/20 09/02/20 History Xl] Allergies Allergy/AdvReac Type Severity Reaction Status Date / Time No Known Allergies Allergy Verified 09/02/20 13:27 Surgical - Exam Vital Signs Temp Pulse Resp BP Pulse Ox 97.1 F L 52 L 26 H 191/92 100 09/02/20 12:18 09/02/20 12:18 09/02/20 12:18 09/02/20 12:18 09/02/20 12:18 - General well developed, well nourished, no distress - Eyes PERRL - ENT normal pinna - Neck no masses - Respiratory normal expansion - Cardiovascular Rhythm: regular - Abdomen Abdomen: soft, non tender Results - Labs 09/03/20 04:36 09/03/20 04:36 Abnormal Lab Results - Last 24 Hours (Table) 09/02/20 09/02/20 09/02/20 Range/Units 12:50 12:50 12:50 MCV 100.1 H (80.0-100.0) fL APTT 21.7 L (22.0-30.0) sec Sodium (137-145) mmol/L BUN (9-20) mg/dL Glucose (74-99) mg/dL Alkaline Phosphatase (38-126) U/L Urine Protein Trace H (Negative) Urine Ketones 3+ H (Negative) 09/02/20 09/03/20 Range/Units 12:50 04:36 MCV (80.0-100.0) fL APTT (22.0-30.0) sec Sodium 136 L (137-145) mmol/L BUN 21 H 21 H (9-20) mg/dL Glucose 108 H (74-99) mg/dL Alkaline Phosphatase 137 H (38-126) U/L Urine Protein (Negative) Urine Ketones (Negative) Diabetes panel 09/02/20 09/03/20 Range/Units 12:50 04:36 Sodium 137 136 L (137-145) mmol/L Potassium 4.4 4.0 (3.5-5.1) mmol/L Chloride 104 105 (98-107) mmol/L Carbon Dioxide 22 25 (22-30) mmol/L BUN 21 H 21 H (9-20) mg/dL Creatinine 0.89 0.92 (0.66-1.25) mg/dL Glucose 108 H 89 (74-99) mg/dL Calcium 10.1 8.9 (8.4-10.2) mg/dL AST 35 35 (17-59) U/L ALT 25 20 (4-49) U/L Alkaline Phosphatase 137 H 95 (38-126) U/L Total Protein 7.6 6.3 (6.3-8.2) g/dL Albumin 4.6 3.7 (3.5-5.0) g/dL Calcium panel 09/02/20 09/03/20 Range/Units 12:50 04:36 Calcium 10.1 8.9 (8.4-10.2) mg/dL Albumin 4.6 3.7 (3.5-5.0) g/dL Pituitary panel 09/02/20 09/03/20 Range/Units 12:50 04:36 Sodium 137 136 L (137-145) mmol/L Potassium 4.4 4.0 (3.5-5.1) mmol/L Chloride 104 105 (98-107) mmol/L Carbon Dioxide 22 25 (22-30) mmol/L BUN 21 H 21 H (9-20) mg/dL Creatinine 0.89 0.92 (0.66-1.25) mg/dL Glucose 108 H 89 (74-99) mg/dL Calcium 10.1 8.9 (8.4-10.2) mg/dL Adrenal panel 09/02/20 09/03/20 Range/Units 12:50 04:36 Sodium 137 136 L (137-145) mmol/L Potassium 4.4 4.0 (3.5-5.1) mmol/L Chloride 104 105 (98-107) mmol/L Carbon Dioxide 22 25 (22-30) mmol/L BUN 21 H 21 H (9-20) mg/dL Creatinine 0.89 0.92 (0.66-1.25) mg/dL Glucose 108 H 89 (74-99) mg/dL Calcium 10.1 8.9 (8.4-10.2) mg/dL Total Bilirubin 1.2 0.9 (0.2-1.3) mg/dL AST 35 35 (17-59) U/L ALT 25 20 (4-49) U/L Alkaline Phosphatase 137 H 95 (38-126) U/L Total Protein 7.6 6.3 (6.3-8.2) g/dL Albumin 4.6 3.7 (3.5-5.0) g/dL Assessment and Plan Assessment: Nausea most likely related to ileus. Patient has improved. He'll be discharged home today.
[2020-09-03 10:29] VITALS: BMI 20.7
--- NOTE | 2020-09-03 10:29 | P.DS ---
Providers Date of admission: 09/02/20 15:18 Expected date of discharge: 09/03/20 Attending physician: Jeovanny Charles Consults: 09/02/20 15:18 Consult Physician Urgent Consulting Provider: Romeo Gordon Consult Reason/Comments: Medical evaluation and treatment Do you want consulting provider notified?: Yes Primary care physician: Romeo Gordon Hospital Course: Discharge diagnosis 1. Abdominal pain with nausea likely secondary to ileus and possibly related to anesthesia from the colonoscopy Hospital course This is a 65-year-old male was admitted through the emergency room last night. Patient undergone previous colonoscopy yesterday. Patient states he felt well. And then when he went home he developed significant nausea, abdominal pain and distention. Patient's admitted back through the emergency room he received fluid hydration and Zofran. Computed tomography scan of the abdomen shows no evident complications status post colonoscopy. Currently feels well this mo rning. He is tolerating diet. He is afebrile. He has been up and ambulating. He is stable for discharge. Physician Heel Seat Pounder note has been reviewed by physician. Signing provider agrees with the documented findings, assessment, and plan of care. Patient Condition at Discharge: Stable Plan - Discharge Summary New Discharge Prescriptions: Continue Tamsulosin [Flomax] 0.4 mg PO DAILY Multivitamins, Thera [Multivitamin (formulary)] 1 tab PO DAILY Atorvastatin [Lipitor] 40 mg PO DAILY Clopidogrel [Plavix] 75 mg PO DAILY #90 tab Apixaban [Eliquis] 5 mg PO BID hydrALAZINE HCL [Apresoline] 25 mg PO BID Pantoprazole Sodium [Protonix] 40 mg PO BID Cholecalciferol [Vitamin D3 (25 Mcg = 1000 Iu)] 5,000 unit PO DAILY Metoprolol Succinate (ER) [Toprol XL] 12.5 mg PO BID Discharge Medication List Atorvastatin [Lipitor] 40 mg PO DAILY 04/11/19 [History] Multivitamins, Thera [Multivitamin (formulary)] 1 tab PO DAILY 04/11/19 [History] Tamsulosin [Flomax] 0.4 mg PO DAILY 04/11/19 [History] Clopidogrel [Plavix] 75 mg PO DAILY #90 tab 05/16/19 [Rx] Apixaban [Eliquis] 5 mg PO BID 08/31/20 [History] Pantoprazole Sodium [Protonix] 40 mg PO BID 08/31/20 [History] hydrALAZINE HCL [Apresoline] 25 mg PO BID 08/31/20 [History] Cholecalciferol [Vitamin D3 (25 Mcg = 1000 Iu)] 5,000 unit PO DAILY 09/02/20 [History] Metoprolol Succinate (ER) [Toprol XL] 12.5 mg PO BID 09/02/20 [History] Follow up Appointment(s)/Referral(s): Romeo Gordon MD [Primary Care Provider] - 1-2 days Jeovanny Charles MD [STAFF PHYSICIAN] - 09/09/20 Activity/Diet/Wound Care/Special Instructions: Diet: Lander today and regular tomorrow Discharge Disposition: HOME SELF-CARE
== END 2020-09-03 10:50 | disposition home or self-care (01) ==
LOC: EC 12:05 → 1SOBS 15:18
PROVIDERS: ADMIT Surgery; ATTEND Surgery
DX: R10.9 Unspecified abdominal pain (principal); R11.0 Nausea; I10 Essential (primary) hypertension; I48.91 Unspecified atrial fibrillation; F17.200 Nicotine dependence, unspecified, uncomplicated; J44.9 Chronic obstructive pulmonary disease, unspecified; N40.0 Benign prostatic hyperplasia without lower urinary tract symptoms; Z79.01 Long term (current) use of anticoagulants; Z79.02 Long term (current) use of antithrombotics/antiplatelets; Z79.899 Other long term (current) drug therapy
CPT/HCPCS: 96361 ×3; 96374; 96375; 99285; 36415; 93005; 88305; 80053 ×2; 82150; 83690; 84484; 85025 ×2; 85610; 85730; 81003; 71046; 71275; 74177; 45380; G0378 ×2; J2405; J1170; J2704; C9113; Q9967 ×2

== ENCOUNTER → 2021-02-08 | Outpatient (CLI) | payer MEDICARE, OTHER ==
[2021-02-08 10:30] LABS: Basophils % (A) 1 %; Eosinophils # (A) 0.2 k/uL (0-0.7); Eosinophils % (A) 3 %; HGB 15.1 gm/dL (13.0-17.5); Lymphocytes # (A) 2.1 k/uL (1.0-4.8); Lymphocytes % (A) 34 %; MCH 32.7 pg (25.0-35.0); MCHC 33.5 g/dL (31.0-37.0); MCV 97.6 fL (80.0-100.0); Mean Platelet Volume 7.1; Monocytes # (A) 0.4 k/uL (0-1.0); Monocytes % (A) 7 %; Neutrophils # (A) 3.3 k/uL (1.3-7.7); Neutrophils % (A) 54 %; Platelet Count 204 k/uL (150-450); RBC 4.61 m/uL (4.30-5.90); RDW 12.4 % (11.5-15.5); WBC 6.1 k/uL (3.8-10.6)
== END | disposition home or self-care (01) ==
LOC: LABPAT 09:10
PROVIDERS: ATTEND Surgery
DX: Z01.818 Encounter for other preprocedural examination (principal); K40.90 Unilateral inguinal hernia, without obstruction or gangrene, not specified as recurrent
CPT/HCPCS: 85025

== ENCOUNTER 2021-02-16 07:15 | Day surgery (SDC) | payer MEDICARE, OTHER ==
[2021-02-11 08:32] VITALS: BMI 21.3
[~2021-02-16 07:15] MED LIST changes: +ACETAMINOPHEN TAB 500 MG TAB PO PRN; +DEXAMETHASONE SOD PHOSPHATE 4 MG/ML 1 ML VIAL IV ONE; +HEPARIN SODIUM,PORCINE/PF 5,000 UNIT/0.5 ML SYRINGE SQ PRN; +HYDROmorphone 0.5 MG/0.5 ML SYRINGE IVP PRN; +LIDOCAINE 1% (10MG/ML) FOR IV START INTRADERMA PRN; +MIDAZOLAM 2 MG/2 ML VIAL IV PRN; +ONDANSETRON 4 MG/2 ML VIAL IVP ONE; +ONDANSETRON 4 MG/2 ML VIAL IVP PRN; +fentaNYL (PF) 50 MCG/ML 2 ML AMP IVP PRN
[2021-02-16] MEDS: LIDOCAINE 1% (10MG/ML) FOR IV START INTRADERMA PRN ×2 (08:14→08:15)
--- NOTE | 2021-02-16 09:03 | P.GSHP ---
History of Present Illness H&P Date: 02/16/21 Chief Complaint: Right inguinal hernia This a 65-year-old male presents today for laparoscopic robotic-assisted repair of right inguinal hernia. His developed an incarcerated right inguinal hernia. Past Medical History Past Medical History: Atrial Fibrillation, COPD, Hyperlipidemia, Hypertension, Prostate Disorder Additional Past Medical History / Comment(s): inguinal hernia, hx AAA, CYST on Back History of Any Multi-Drug Resistant Organisms: None Reported Past Surgical History: Tonsillectomy Additional Past Surgical History / Comment(s): COLONOSCOPY, AAA has 2 stents Past Anesthesia/Blood Transfusion Reactions: Postoperative Nausea & Vomiting (PONV) Smoking Status: Former smoker - Past Family History Mother Family Medical History: CVA/TIA Brother(s) Family Medical History: Cancer Medications and Allergies Home Medications Medication Instructions Recorded Confirmed Type Atorvastatin [Lipitor] 40 mg PO DAILY 04/11/19 02/16/21 History Multivitamins, Thera [Multivitamin 1 tab PO DAILY 04/11/19 02/11/21 History (formulary)] Tamsulosin [Flomax] 0.4 mg PO DAILY 04/11/19 02/11/21 History Clopidogrel [Plavix] 75 mg PO DAILY #90 tab 05/16/19 02/11/21 Rx Apixaban [Eliquis] 5 mg PO BID 08/31/20 02/11/21 History Pantoprazole Sodium [Protonix] 40 mg PO BID 08/31/20 02/11/21 History Cholecalciferol [Vitamin D3 (25 5,000 unit PO DAILY 09/02/20 02/11/21 History Mcg = 1000 Iu)] Metoprolol Succinate (ER) [Toprol 25 mg PO QAM 02/11/21 02/16/21 History Xl] hydrALAZINE HCL [Apresoline] 50 mg PO BID 02/11/21 02/11/21 History Allergies Allergy/AdvReac Type Severity Reaction Status Date / Time No Known Allergies Allergy Verified 02/11/21 08:12 Surgical - Exam Vital Signs Temp Pulse Resp BP Pulse Ox 97.4 F L 70 16 140/75 97 02/16/21 07:35 02/16/21 07:35 02/16/21 07:35 02/16/21 07:35 02/16/21 07:35 - General well developed, well nourished, no distress - Eyes PERRL - ENT normal pinna - Neck no masses - Respiratory normal expansion - Cardiovascular Rhythm: regular - Abdomen Abdomen: soft, non tender Hernia: inguinal (Large incarcerated right inguinal hernia) Assessment and Plan Assessment: Incarcerated right inguinal hernia. We'll perform laparoscopic robotic-assisted repair.
[2021-02-16] MEDS ORDERED: fentaNYL (PF) 50 MCG/ML 2 ML AMP ONE (09:19)
[2021-02-16] MEDS ORDERED: SUCCINYLCHOLINE CHLORIDE 100 MG/5 ML SYR IV ONE (09:19)
[2021-02-16] MEDS ORDERED: hydrALAZINE HCL 20 MG/ML 1 ML VIAL ONE (09:19)
[2021-02-16] MEDS ORDERED: PROPOFOL 10 MG/ML 20 ML VIAL IV ONE (09:19)
[2021-02-16] MEDS ORDERED: ROCURONIUM 10 MG/ML (5 ML VIAL) IV ONE (09:19)
[2021-02-16] MEDS ORDERED: GLYCOPYRROLATE 0.2 MG/ML 2 ML VIAL ONE (09:19)
[2021-02-16] MEDS ORDERED: NEOSTIGMINE 1 MG/ML 10 ML VIAL ONE (09:19)
[2021-02-16] MEDS ORDERED: ROPIVACAINE 5 MG/ML 30 ML VIAL ONE (09:19)
[2021-02-16] MEDS ORDERED: KETAMINE 10 MG/ML 20 ML VIAL ONE (09:19)
[2021-02-16] MEDS ORDERED: LIDOCAINE 1%-EPI 1:100,000 20 ML VIAL SQ ONE (09:49)
--- NOTE | 2021-02-16 10:20 | P.OP ---
Date of Procedure: 02/16/21 Preoperative Diagnosis: Right inguinal hernia Postoperative Diagnosis: Bilateral inguinal hernia Procedure(s) Performed: Laparoscopic robotic-assisted repair of bilateral internal hernia Anesthesia: RHONA Surgeon: Jeovanny Charles Estimated Blood Loss (ml): 5 Pathology: none sent Condition: stable Disposition: PACU Description of Procedure: The patient's placed on the operating table in the supine position. The patient received general anesthesia. The patient's abdomen was prepped and draped in usual sterile fashion. The skin was anesthetized 1% local Xylocaine at the incision sites. Using an 11 blade a skin incision was made at the umbilicus. The fascia was grasped with a Startex and then the peritoneal cavity was entered with the Veress needle. Position of the Veress needle was confirmed with a positive drop test. After adequate insufflation a 5 mm trocar was placed into the peritoneal cavity. The Laparoscope was placed the peritoneal cavity. And a robotic 8 mm trocar was placed in the right lateral position and then another 8 mm robotic trochars placed in the left lateral position. The original 5 mm trocar was exchanged for a 12 mm trocar. The patient was placed in reverse Trendelenburg and then the patient was docked to the robot. Next the peritoneum over top of the right inguinal hernia was incised and then using blunt and sharp dissection and electrocautery the hernia sac was dissected free from the floor of the inguinal canal. The hernia sac was completely reduced into the peritoneal cavity. And then using the Pro supervisor carton and can supply mesh the hernia was repaired. The peritoneum was then sutured with 20V lock suture. Next the peritoneum over top of the left inguinal hernia was incised and then using blunt and sharp dissection and electrocautery the hernia sac was dissected free from the floor of the inguinal canal. The hernia sac was completely reduced into the peritoneal cavity. And then using the Pro supervisor carton and can supply mesh the hernia was repaired. The peritoneum was then sutured with 20V lock suture. The patient was then undocked the robot. The needle was withdrawn from the peritoneal cavity. The umbilical trocar site was closed with 0 Ethibond suture. The skin was closed interrupted 3-0 Monocryl suture. Dermabond dressing was applied. Patient was sent to recovery in stable condition.
[2021-02-16] MEDS ORDERED: LACTATED RINGERS 1,000 ML IV ONE ×2 (10:23)
[2021-02-16 10:34] VITALS: TEMP 97.5
--- NOTE | 2021-02-16 11:01 | P.ANPRN ---
Procedure Note - Anesthesia - Nerve Block Performed Bilateral Erector Spinae Single Time Out Performed: Yes Date of Procedure: 02/16/21 Procedure Start Time: 08:32 Procedure Stop Time: 08:46 Location of Patient: PreOp Indication: Acute Post-Operative Pain, Requested by Surgeon Sedation Type: Sedate with meaningful contact maintained Preparation: Sterile Prep, Sterile Dressing Position: Sitting Catheter: None Needle Types: Facet Needle Gauge: 21 Ultrasound used to visualize needle placement: Yes Ultrasound used to observe medication spread: Yes Injectate: Other (see comment) (ropivacaine 0.25% 25 ml per side) Blood Aspirated: No Pain Paresthesia on Injection Noted: No Resistance on Injection: Normal Image Stored and Saved: Yes Events: Uneventful and Well Tolerated
[2021-02-16 11:11] VITALS: RESP 16
[2021-02-16 14:21] VITALS: BP 138/78; PULSE 65
== END 2021-02-16 13:55 | disposition home or self-care (01) ==
LOC: OR 07:15
PROVIDERS: ATTEND Surgery
DX: K40.20 Bilateral inguinal hernia, without obstruction or gangrene, not specified as recurrent (principal); I48.91 Unspecified atrial fibrillation; J44.9 Chronic obstructive pulmonary disease, unspecified; E78.5 Hyperlipidemia, unspecified; I10 Essential (primary) hypertension; I25.10 Atherosclerotic heart disease of native coronary artery without angina pectoris; I73.9 Peripheral vascular disease, unspecified; N40.0 Benign prostatic hyperplasia without lower urinary tract symptoms; Z97.2 Presence of dental prosthetic device (complete) (partial); Z90.89 Acquired absence of other organs; Z95.820 Peripheral vascular angioplasty status with implants and grafts; L72.9 Follicular cyst of the skin and subcutaneous tissue, unspecified; Z82.3 Family history of stroke; Z80.9 Family history of malignant neoplasm, unspecified; Z87.891 Personal history of nicotine dependence; Z79.01 Long term (current) use of anticoagulants; Z79.02 Long term (current) use of antithrombotics/antiplatelets; Z79.899 Other long term (current) drug therapy
CPT/HCPCS: 64999; 76942; 49650; C1781; J2250; J0360; J1100; J2710; J0690; J2405; J3010; J2795; J0330; J2704; J1170; J1644

== ENCOUNTER 2023-12-14 13:38 | Observation (INO) | payer MEDICARE ==
--- NOTE | 2023-12-14 14:03 | ED ---
General Adult HPI - General Chief complaint: Abdominal Pain Stated complaint: Chills,Sweaty-post Heart surgery Time Seen by Provider: 12/14/23 13:49 Source: patient, RN notes reviewed, old records reviewed Mode of arrival: ambulatory Limitations: no limitations - History of Present Illness Initial comments: 68-year-old male presenting with abdominal pain, fever and chills. Patient had cardiac stents placed at [facility] on Sunday of this week which was 3 days prior. He is presenting today with chief complaint of fever chills and right-sided abdominal pain. His stents were placed through the right radial artery and there was no arterial puncture within the groin. He denies urinary symptoms. He states he has been constipated without diarrhea. He has had multiple episodes of vomiting. - Related Data Home Medications Medication Instructions Recorded Confirmed Atorvastatin [Lipitor] 40 mg PO HS 04/11/19 12/14/23 Apixaban [Eliquis] 5 mg PO BID 08/31/20 12/14/23 Cholecalciferol [Vitamin D3 (25 50 unit PO DAILY 09/02/20 12/14/23 Mcg = 1000 Iu)] Metoprolol Tartrate [Lopressor] 25 mg PO Q12H 12/14/23 12/14/23 Mv-Min/Folic/K1/Lycopen/Lutein 1 tab PO DAILY 12/14/23 12/14/23 [Centrum Silver Men Tablet] hydrALAZINE HCL [Apresoline] 25 mg PO BID 12/14/23 12/14/23 Previous Rx's Medication Instructions Recorded Clopidogrel [Plavix] 75 mg PO DAILY #90 tab 05/16/19 Allergies Allergy/AdvReac Type Severity Reaction Status Date / Time No Known Allergies Allergy Verified 12/14/23 15:11 Review of Systems ROS Statement: Those systems with pertinent positive or pertinent negative responses have been documented in the HPI. ROS Other: All systems not noted in ROS Statement are negative. Past Medical History Past Medical History: Atrial Fibrillation, COPD, Hypertension, Prostate Disorder Additional Past Medical History / Comment(s): BPH, AAA, CYST on Back History of Any Multi-Drug Resistant Organisms: None Reported Past Surgical History: Heart Catheterization With Stent Additional Past Surgical History / Comment(s): COLONOSCOPY Past Anesthesia/Blood Transfusion Reactions: No Reported Reaction Past Psychological History: No Psychological Hx Reported Smoking Status: Current every day smoker Past Alcohol Use History: None Reported Past Drug Use History: None Reported - Past Family History Mother Family Medical History: CVA/TIA Brother(s) Family Medical History: Cancer General Exam Limitations: no limitations General appearance: alert, in no apparent distress Head exam: Present: atraumatic, normocephalic Eye exam: Present: normal appearance, PERRL ENT exam: Present: mucous membranes dry Neck exam: Present: normal inspection. Absent: tenderness Respiratory exam: Present: normal lung sounds bilaterally. Absent: respiratory distress, wheezes Cardiovascular Exam: Present: normal rhythm, bradycardia GI/Abdominal exam: Present: soft, tenderness (Right upper and right lower quadrant) Extremities exam: Present: normal inspection, normal capillary refill, other (Right radial puncture site appears well-healed without signs of infection) Neurological exam: Present: alert, oriented X3, CN II-XII intact. Absent: motor sensory deficit Psychiatric exam: Present: normal affect, normal mood Skin exam: Present: warm, dry, intact. Absent: cyanosis, diaphoretic Course Vital Signs 12/14/23 12/14/23 12/14/23 13:43 14:37 15:48 Temperature 98.5 F Pulse Rate 45 L 50 L 60 Respiratory 26 H 18 18 Rate Blood Pressure 165/70 177/97 150/69 O2 Sat by Pulse 100 100 96 Oximetry Medical Decision Making - Medical Decision Making Was pt. sent in by a medical professional or institution (, PA, CREASING MACHINE OPERATOR, urgent care, hospital, or [facility]...) When possible be specific @ -No Did you speak to anyone other than the patient for history (EMS, parent, family, police, friend...)? What history was obtained from this source @ -No Did you review nursing and triage notes (agree or disagree)? Why? @ -I reviewed and agree with nursing and triage notes Were old charts reviewed (outside hosp., previous admission, EMS record, old EKG, old radiological studies, urgent care reports/EKG's, [facility] records)? Report findings @ -No old charts were reviewed Differential Diagnosis (chest pain, altered mental status, abdominal pain women, abdominal pain men, vaginal bleeding, weakness, fever, dyspnea, syncope, headache, dizziness, GI bleed, back pain, seizure, CVA, palpatations, mental health, musculoskeletal)? @ -Not applicable EKG interpreted by me (3pts min.). @ -Sinus bradycardia rate of [address] segment elevation, CO interval 164, QRS duration 71, QTc 410 X-rays interpreted by me (1pt min.). @Chest x-ray negative for acute cardiopulmonary findings CT interpreted by me (1pt min.). @CT of the abdomen pelvis with contrast showing obstructing renal calculus at the UVJ with associated hydronephrosis and hydroureter. U/S interpreted by me (1pt. min.). @ -None done What testing was considered but not performed or refused? (CT, X-rays, U/S, labs)? Why? @ -None What meds were considered but not given or refused? Why? @ -None Did you discuss the management of the patient with other professionals (professionals i.e. , PA, CREASING MACHINE OPERATOR, lab, RT, psych nurse, psychiatric social worker supervisor, drafter (cad) electrical, teacher, housing management officer, case management social worker)? Give summary @ -[Joseph, covering for [facility], urology has been paged Was smoking cessation discussed for >3mins.? @ -No Was critical care preformed (if so, how long)? @ -No Were there social determinants of health that impacted care today? How? (Homelessness, low income, unemployed, alcoholism, drug addiction, transportation, low edu. Level, literacy, decrease access to med. care, assisted, rehab)? @ -No Was there de-escalation of care discussed even if they declined (Discuss DNR or withdrawal of care, Hospice)? DNR status @ -No What co-morbidities impacted this encounter? (DM, HTN, Smoking, COPD, CAD, Cancer, CVA, ARF, Chemo, Hep., AIDS, mental health diagnosis, sleep apnea, morbid obesity)? @CAD with recent heart cath Was patient admitted / discharged? Hospital course, mention meds given and route, prescriptions, significant lab abnormalities, going to OR and other pertinent info. @68-year-old male presenting with vomiting, chills, right-sided abdominal pain. Patient had heart cath earlier this week with 2 stents placed. Workup was initiated including blood cultures, chest x-ray, CT, laboratory testing and urinalysis. Urinalysis is hemorrhagic with greater than 180 red cells. No signs of concurrent infection. Patient has a mild leukocytosis at 12 and a mildly elevated lactic acid. CT does show obstructing renal calculus with hydronephrosis and hydroureter. Given the elevated lactic acid, recent heart catheterization with stenting he will be kept for pain control, close monitoring. Case discussed with the admitting team, [facility] hospitalist and urology has been paged Undiagnosed new problem with uncertain prognosis? @ -No Drug Therapy requiring intensive monitoring for toxicity (Heparin, Nitro, Insulin, Cardizem)? @ -No Were any procedures done? @ -No Diagnosis/symptom? @ -[Obstructing renal calculus, lactic acidosis Acute, or Chronic, or Acute on Chronic? @ -Acute Uncomplicated (without systemic symptoms) or Complicated (systemic symptoms)? @ -Complicated Side effects of treatment? @ -No Exacerbation, Progression, or Severe Exacerbation? @ -No Poses a threat to life or bodily function? How? (Chest pain, [place], NM, pneumonia, PE, COPD, DKA, ARF, appy, cholecystitis, CVA, Diverticulitis, Homicidal, Suicidal, threat to staff... and all critical care pts) @ -Moderate risk at this time - Lab Data Result diagrams: 12/14/23 14:19 12/14/23 14:19 Lab Results 12/14/23 12/14/23 12/14/23 Range/Units 14:11 14:19 14:19 WBC 12.4 H (3.8-10.6) k/uL RBC 5.45 (4.30-5.90) m/uL Hgb 17.3 (13.0-17.5) gm/dL Hct 50.9 (39.0-53.0) % MCV 93.3 (80.0-100.0) fL MCH 31.7 (25.0-35.0) pg MCHC 34.0 (31.0-37.0) g/dL RDW 12.9 (11.5-15.5) % Plt Count 222 (150-450) k/uL MPV 8.4 Neutrophils % 87 % Lymphocytes % 8 % Monocytes % 4 % Eosinophils % 1 % Basophils % 0 % Neutrophils # 10.7 H (1.3-7.7) k/uL Lymphocytes # 1.0 (1.0-4.8) k/uL Monocytes # 0.5 (0-1.0) k/uL Eosinophils # 0.1 (0-0.7) k/uL Basophils # 0.0 (0-0.2) k/uL PT 10.3 (10.0-12.5) sec INR 0.9 (<1.2) APTT 26.1 (22.0-30.0) sec Sodium (137-145) mmol/L Potassium (3.5-5.1) mmol/L Chloride (98-107) mmol/L Carbon Dioxide (22-30) mmol/L Anion Gap mmol/L BUN (9-20) mg/dL Creatinine (0.66-1.25) mg/dL Est GFR (CKD-EPI)AfAm (>60 ml/min/1.73 sqM) Est GFR (CKD-EPI)NonAf (>60 ml/min/1.73 sqM) Glucose (74-99) mg/dL Plasma Lactic Acid [place]obito (0.7-2.0) mmol/L Calcium (8.4-10.2) mg/dL Total Bilirubin (0.2-1.3) mg/dL AST (17-59) U/L ALT (4-49) U/L Alkaline Phosphatase (38-126) U/L Total Protein (6.3-8.2) g/dL Albumin (3.5-5.0) g/dL Lipase (23-300) U/L Urine Color Light Yellow Urine Appearance Clear (Clear) Urine pH 6.0 (5.0-8.0) Ur Specific [place] 1.015 (1.001-1.035) Urine Protein Negative (Negative) Urine Glucose (UA) Negative (Negative) Urine Ketones 1+ H (Negative) Urine Blood Large H (Negative) Urine Nitrite Negative (Negative) Urine Bilirubin Negative (Negative) Urine Urobilinogen <2.0 (<2.0) mg/dL Ur Leukocyte Esterase Negative (Negative) Urine RBC 180 H (0-5) /hpf Urine WBC 2 (0-5) /hpf Hyaline Casts 3 H (0-2) /lpf Urine Mucus Rare H (None) /hpf Influenza Type A (PCR) (Not Detectd) Influenza Type B (PCR) (Not Detectd) RSV (PCR) (Not Detectd) SARS-CoV-2 (PCR) (Not Detectd) 12/14/23 12/14/23 12/14/23 Range/Units 14:19 14:19 14:19 WBC (3.8-10.6) k/uL RBC (4.30-5.90) m/uL Hgb (13.0-17.5) gm/dL Hct (39.0-53.0) % MCV (80.0-100.0) fL MCH (25.0-35.0) pg MCHC (31.0-37.0) g/dL RDW (11.5-15.5) % Plt Count (150-450) k/uL MPV Neutrophils % % Lymphocytes % % Monocytes % % Eosinophils % % Basophils % % Neutrophils # (1.3-7.7) k/uL Lymphocytes # (1.0-4.8) k/uL Monocytes # (0-1.0) k/uL Eosinophils # (0-0.7) k/uL Basophils # (0-0.2) k/uL PT (10.0-12.5) sec INR (<1.2) APTT (22.0-30.0) sec Sodium 138 (137-145) mmol/L Potassium 4.1 (3.5-5.1) mmol/L Chloride 107 (98-107) mmol/L Carbon Dioxide 20 L (22-30) mmol/L Anion Gap 11 mmol/L BUN 20 (9-20) mg/dL Creatinine 0.97 (0.66-1.25) mg/dL Est GFR (CKD-EPI)AfAm >90 (>60 ml/min/1.73 sqM) Est GFR (CKD-EPI)NonAf 81 (>60 ml/min/1.73 sqM) Glucose 148 H (74-99) mg/dL Plasma Lactic Acid [place]ito 3.4 H* (0.7-2.0) mmol/L Calcium 9.9 (8.4-10.2) mg/dL Total Bilirubin 1.5 H (0.2-1.3) mg/dL AST 58 (17-59) U/L ALT 41 (4-49) U/L Alkaline Phosphatase 167 H (38-126) U/L Total Protein 7.7 (6.3-8.2) g/dL Albumin 4.6 (3.5-5.0) g/dL Lipase 58 (23-300) U/L Urine Color Urine Appearance (Clear) Urine pH (5.0-8.0) Ur Specific [place] (1.001-1.035) Urine Protein (Negative) Urine Glucose (UA) (Negative) Urine Ketones (Negative) Urine Blood (Negative) Urine Nitrite (Negative) Urine Bilirubin (Negative) Urine Urobilinogen (<2.0) mg/dL Ur Leukocyte Esterase (Negative) Urine RBC (0-5) /hpf Urine WBC (0-5) /hpf Hyaline Casts (0-2) /lpf Urine Mucus (None) /hpf Influenza Type A (PCR) Not Detected (Not Detectd) Influenza Type B (PCR) Not Detected (Not Detectd) RSV (PCR) Not Detected (Not Detectd) SARS-CoV-2 (PCR) Not Detected (Not Detectd) Disposition Clinical Impression: Hydronephrosis with renal and ureteral calculus obstruction, Calculus of kidney Disposition: ADMITTED IP TO THIS [facility] Condition: Stable Is patient prescribed a controlled substance at d/c from ED?: No Referrals: Romeo Gordon MD [Primary Care Provider] - 1-2 days Time of Disposition: 16:55
[2023-12-14] MEDS: ACETAMINOPHEN IV (For NPO) 1,000 MG in EMPTY BAG 1 BAG IVPB STA (14:41)
[2023-12-14] MEDS: SODIUM CHLORIDE 0.9% 500 ML 500 ML IV STA (14:44)
[2023-12-14 14:48] LABS: Basophils % (A) 0 %; Eosinophils # (A) 0.1 k/uL (0-0.7); Eosinophils % (A) 1 %; HCT 50.9 % (39.0-53.0); HGB 17.3 gm/dL (13.0-17.5); Lymphocytes % (A) 8 %; MCH 31.7 pg (25.0-35.0); MCV 93.3 fL (80.0-100.0); Mean Platelet Volume 8.4; Monocytes # (A) 0.5 k/uL (0-1.0); Monocytes % (A) 4 %; Neutrophils # (A) 10.7 k/uL (1.3-7.7); Neutrophils % (A) 87 %; Platelet Count 222 k/uL (150-450); RBC 5.45 m/uL (4.30-5.90); RDW 12.9 % (11.5-15.5); WBC 12.4 k/uL (3.8-10.6)
[2023-12-14 14:56] LABS: INR 0.9 (<1.2); Partial Thromboplastin Time 26.1 sec (22.0-30.0); Prothrombin Time 10.3 sec (10.0-12.5)
[2023-12-14 15:24] LABS: ALT 41 U/L (4-49); AST 58 U/L (17-59); African American GFR (CKD) >90 (>60 ml/min/1.73 sqM); Albumin 4.6 g/dL (3.5-5.0); Alkaline Phosphatase 167 U/L (38-126); Anion Gap 11 mmol/L; Blood Urea Nitrogen 20 mg/dL (9-20); Calcium 9.9 mg/dL (8.4-10.2); Carbon Dioxide 20 mmol/L (22-30); Chloride 107 mmol/L (98-107); Glucose 148 mg/dL (74-99); Lipase 58 U/L (23-300); Non-African American GFR(CKD) 81 (>60 ml/min/1.73 sqM); Potassium 4.1 mmol/L (3.5-5.1); Sodium 138 mmol/L (137-145); Total Bilirubin 1.5 mg/dL (0.2-1.3); Total Protein 7.7 g/dL (6.3-8.2)
[2023-12-14 15:33] LABS: Appearance,Urine Clear (Clear); Bilirubin,Urine Negative (Negative); Blood,Urine Large (Negative); Color,Urine Light Yellow; Glucose,Urine (UA) Negative (Negative); Hyaline Casts,Urine 3 /lpf (0-2); Ketones,Urine 1+ (Negative); Leukocyte Esterase,Urine Negative (Negative); Mucus,Urine Rare /hpf; Nitrite,Urine Negative (Negative); Protein,Urine Negative (Negative); RBC,Urine 180 /hpf (0-5); Specific Gravity,Urine 1.015 (1.001-1.035); Urobilinogen,Urine <2.0 mg/dL (<2.0); WBC,Urine 2 /hpf (0-5)
--- NOTE | 2023-12-14 16:10 | XR ---
EXAMINATION TYPE: XR chest 1V portable DATE OF EXAM: 12/14/2023 3:27 PM CLINICAL INDICATION:Male, 68 years old with history of fever; COMPARISON: Chest radiographs from 09/02/2020 TECHNIQUE: XR chest 1V portable Frontal view of the chest. FINDINGS: Lungs/Pleura: There is flattening of the diaphragm with increased lucency of the lungs. No evidence o f pneumothorax, pleural effusion or focal consolidation. Pulmonary vascularity: Unremarkable. Heart/mediastinum: Cardiomediastinal silhouette is unremarkable. Musculoskeletal: No acute osseous pathology. IMPRESSION: 1. No acute cardiopulmonary disease process. 2. COPD changes.
--- NOTE | 2023-12-14 16:28 | CT ---
EXAMINATION TYPE: CT abdomen pelvis w con CT DLP: 956.2 mGycm, Automated exposure control for dose reduction was used. DATE OF EXAM: 12/14/2023 4:18 PM COMPARISON: CT abdomen pelvis most recent from CLINICAL INDICATION:Male, 68 years old with history of abdominal pain/fever; Abdominal pain, fever, p ost cardiac stent procedure on Sunday TECHNIQUE: Axial CT abdomen pelvis w con;Sagittal and coronal reformats were created on a separate w orkstation. Contrast used:100 mL of Isovue 300 with IV Contrast, (none if empty) Oral contrast used: without Oral Contrast (none if empty) FINDINGS: LOWER CHEST: Unremarkable ABDOMEN LIVER: Unremarkable GALLBLADDER AND BILE DUCTS: Unremarkable. PANCREAS: Unremarkable. SPLEEN: Unremarkable. ADRENAL GLANDS: Unremarkable. KIDNEYS AND URETERS: Mild right hydronephrosis secondary obstructing 4 mm calculus at the ureterovesi cular junction. Additional nonobstructing bilateral renal calculi measuring up to 4 mm on the left an d 3 mm in the right. PELVIS BLADDER: Unremarkable REPRODUCTIVE: Unremarkable. ABDOMEN & PELVIS STOMACH AND BOWEL: No evidence of bowel obstruction. Scattered colonic diverticula. PERITONEUM/RETROPERITONEUM: No evidence of pneumoperitoneum or free fluid. VASCULATURE: No evidence of aortic aneurysm. Aortobiiliac stent graft appears patent. MUSCULOSKELETAL: No acute osseous abnormalities. Mild disc degeneration changes are present throughou t the thoracolumbar spine. LYMPH NODES: No gross evidence for lymphadenopathy. SOFT TISSUE/ABDOMINAL WALL: Small fat-containing umbilical hernia. IMPRESSION: Mild right hydronephrosis secondary obstructing 4 mm calculus at the ureterovesicular junction. Addit ional nonobstructing bilateral renal calculi measuring up to 4 mm on the left and 3 mm in the right.
[2023-12-14] MEDS ORDERED: HYDROmorphone 1 MG/ML 1 ML SYRINGE IVP PRN (16:43)
[2023-12-14] MEDS ORDERED: NALOXONE 0.4 MG/ML 1 ML VIAL IV PRN (16:43)
[2023-12-14] MEDS: SODIUM CHLORIDE 0.9% 1,000 ML IV SCH (17:23)
[2023-12-14] MEDS: ACETAMINOPHEN TAB 325 MG TAB PO PRN (21:11)
[2023-12-14] MEDS: SODIUM CHLORIDE 0.9% 500 ML 500 ML IV ONE (22:07)
[2023-12-14] MEDS: ONDANSETRON 4 MG/2 ML VIAL IVP PRN (22:51)
[2023-12-14] MEDS: HYDROmorphone 0.5 MG/0.5 ML SYRINGE IVP PRN (22:51)
[2023-12-15 01:24] VITALS: TEMP 98.3
[2023-12-15 08:53] VITALS: BP 112/55; PULSE 58; RESP 19
[2023-12-15] MEDS: hydrALAZINE HCL 25 MG TAB PO SCH (09:35)
[2023-12-15] MEDS: CLOPIDOGREL 75 MG TAB PO SCH (09:35)
[2023-12-15] MEDS: CHOLECALCIFEROL 25 MCG (1000 IU) TABLET PO SCH (09:35)
[2023-12-15] MEDS: METOPROLOL TARTRATE 25 MG TAB PO SCH (09:35)
--- NOTE | 2023-12-15 11:00 | P.GSCN ---
History of Present Illness Consult date: 12/15/23 Reason for Consult: Right ureteral calculus Requesting physician: Dawson Santoro History of present illness: The patient is a 68-year-old white male who underwent coronary artery stenting via the right radial artery at [facility] in December 11, 2023. He presented to the ER yesterday and was admitted with primary complaints RLQ abdominal pain, nausea, and vomiting. He experienced increased pain overnight but is now asymptomatic. He denies any prior history of urolithiasis. Review of Systems - Gastrointestinal Reports abdominal pain, Reports constipation, Reports nausea, Reports vomiting - Genitourinary Reports kidney stones, Denies dysuria, Denies hematuria Past Medical History Past Medical History: Atrial Fibrillation, COPD, Hypertension, Prostate Disorder Additional Past Medical History / Comment(s): BPH, AAA, CYST on Back History of Any Multi-Drug Resistant Organisms: None Reported Past Surgical History: Heart Catheterization With Stent Additional Past Surgical History / Comment(s): COLONOSCOPY Past Anesthesia/Blood Transfusion Reactions: No Reported Reaction Date of Last Stent Placement:: 12/11/23 Past Psychological History: No Psychological Hx Reported Smoking Status: Current every day smoker Past Alcohol Use History: None Reported Additional Past Alcohol Use History / Comment(s): SMOKES 1 PPD OR MORE, SMOKING OFF AND ON FOR 40 YEARS OR MORE. Past Drug Use History: None Reported - Past Family History Mother Family Medical History: CVA/TIA Brother(s) Family Medical History: Cancer Medications and Allergies Home Medications Medication Instructions Recorded Confirmed Type Atorvastatin [Lipitor] 40 mg PO HS 04/11/19 12/14/23 History Clopidogrel [Plavix] 75 mg PO DAILY #90 tab 05/16/19 12/14/23 Rx Apixaban [Eliquis] 5 mg PO BID 08/31/20 12/14/23 History Cholecalciferol [Vitamin D3 (25 50 unit PO DAILY 09/02/20 12/14/23 History Mcg = 1000 Iu)] Metoprolol Tartrate [Lopressor] 25 mg PO Q12H 12/14/23 12/14/23 History Mv-Min/Folic/K1/Lycopen/Lutein 1 tab PO DAILY 12/14/23 12/14/23 History [Centrum Silver Men Tablet] hydrALAZINE HCL [Apresoline] 25 mg PO BID 12/14/23 12/14/23 History Allergies Allergy/AdvReac Type Severity Reaction Status Date / Time No Known Allergies Allergy Verified 12/14/23 15:11 Surgical - Exam Vital Signs Temp Pulse Resp BP Pulse Ox 98.5 F 45 L 26 H 165/70 100 12/14/23 13:43 12/14/23 13:43 12/14/23 13:43 12/14/23 13:43 12/14/23 13:43 - General well developed, well nourished, no distress - Respiratory normal respiratory effort - Abdomen Abdomen: soft, non tender, no guarding, no rigid, no rebound - Genitourinary normal penis with no external lesions, testicles non-tender - Psychiatric oriented to time, oriented to person, oriented to place, speech is normal, memory intact Results - Labs 12/14/23 14:19 12/14/23 14:19 Abnormal Lab Results - Last 24 Hours (Table) 12/14/23 12/14/23 12/14/23 Range/Units 14:11 14:19 14:19 WBC 12.4 H (3.8-10.6) k/uL Neutrophils # 10.7 H (1.3-7.7) k/uL Carbon Dioxide 20 L (22-30) mmol/L Glucose 148 H (74-99) mg/dL Plasma Lactic Acid Lobito (0.7-2.0) mmol/L Total Bilirubin 1.5 H (0.2-1.3) mg/dL Alkaline Phosphatase 167 H (38-126) U/L Urine Ketones 1+ H (Negative) Urine Blood Large H (Negative) Urine RBC 180 H (0-5) /hpf Hyaline Casts 3 H (0-2) /lpf Urine Mucus Rare H (None) /hpf 12/14/23 12/14/23 12/14/23 Range/Units 14:19 17:41 21:06 WBC (3.8-10.6) k/uL Neutrophils # (1.3-7.7) k/uL Carbon Dioxide (22-30) mmol/L Glucose (74-99) mg/dL Plasma Lactic Acid Lobito 3.4 H* 2.8 H* 3.1 H* (0.7-2.0) mmol/L Total Bilirubin (0.2-1.3) mg/dL Alkaline Phosphatase (38-126) U/L Urine Ketones (Negative) Urine Blood (Negative) Urine RBC (0-5) /hpf Hyaline Casts (0-2) /lpf Urine Mucus (None) /hpf Diabetes panel 12/14/23 Range/Units 14:19 Sodium 138 (137-145) mmol/L Potassium 4.1 (3.5-5.1) mmol/L Chloride 107 (98-107) mmol/L Carbon Dioxide 20 L (22-30) mmol/L BUN 20 (9-20) mg/dL Creatinine 0.97 (0.66-1.25) mg/dL Glucose 148 H (74-99) mg/dL Calcium 9.9 (8.4-10.2) mg/dL AST 58 (17-59) U/L ALT 41 (4-49) U/L Alkaline Phosphatase 167 H (38-126) U/L Total Protein 7.7 (6.3-8.2) g/dL Albumin 4.6 (3.5-5.0) g/dL Calcium panel 12/14/23 Range/Units 14:19 Calcium 9.9 (8.4-10.2) mg/dL Albumin 4.6 (3.5-5.0) g/dL Pituitary panel 12/14/23 Range/Units 14:19 Sodium 138 (137-145) mmol/L Potassium 4.1 (3.5-5.1) mmol/L Chloride 107 (98-107) mmol/L Carbon Dioxide 20 L (22-30) mmol/L BUN 20 (9-20) mg/dL Creatinine 0.97 (0.66-1.25) mg/dL Glucose 148 H (74-99) mg/dL Calcium 9.9 (8.4-10.2) mg/dL Adrenal panel 12/14/23 Range/Units 14:19 Sodium 138 (137-145) mmol/L Potassium 4.1 (3.5-5.1) mmol/L Chloride 107 (98-107) mmol/L Carbon Dioxide 20 L (22-30) mmol/L BUN 20 (9-20) mg/dL Creatinine 0.97 (0.66-1.25) mg/dL Glucose 148 H (74-99) mg/dL Calcium 9.9 (8.4-10.2) mg/dL Total Bilirubin 1.5 H (0.2-1.3) mg/dL AST 58 (17-59) U/L ALT 41 (4-49) U/L Alkaline Phosphatase 167 H (38-126) U/L Total Protein 7.7 (6.3-8.2) g/dL Albumin 4.6 (3.5-5.0) g/dL - Imaging CT scan - abdomen: report reviewed, image reviewed Assessment and Plan Assessment: The patient's pain is due to a 4 mm right UVJ calculus, resulting in mild right hydronephrosis. He is now asymptomatic. I reassured him that this calculus has a 95% probability of passing, if it has not already. CT scan also shows bilateral renal calculi measuring up to 3 to 4 mm in size. (1) Calculus of kidney Current Visit: Yes Status: Acute Code(s): N20.0 - CALCULUS OF KIDNEY SNOMED Code(s): 19409666 (2) Calculus of ureter Current Visit: Yes Status: Acute Code(s): N20.1 - CALCULUS OF URETER SNOMED Code(s): 88463210 Plan: Given the fact that the calculus has a high likelihood of spontaneous passage, the patient is currently asymptomatic, and he recently underwent coronary stenting, it is my intent to avoid surgery. If surgery was required, that would consist of ureteroscopy with laser lithotripsy and/or stone basketing, and I will recommend this only if the patient develops intractable symptoms. From a urologic standpoint, he may be discharged home and follow-up with me as an outpatient. He has been advised to contact me if he develops intractable symptoms. It would be reasonable to prescribe tamsulosin to increase the likelihood of stone passage. Time with Patient: Greater than 30
[2023-12-15 11:25] LABS: Basophils % (A) 0 %; Eosinophils # (A) 0.1 k/uL (0-0.7); Eosinophils % (A) 1 %; Lymphocytes # (A) 2.3 k/uL (1.0-4.8); Lymphocytes % (A) 27 %; MCHC 33.2 g/dL (31.0-37.0); MCV 96.2 fL (80.0-100.0); Mean Platelet Volume 8.2; Monocytes # (A) 0.6 k/uL (0-1.0); Monocytes % (A) 7 %; Neutrophils # (A) 5.5 k/uL (1.3-7.7); Neutrophils % (A) 64 %; Platelet Count 181 k/uL (150-450); RBC 4.47 m/uL (4.30-5.90); RDW 13.2 % (11.5-15.5); WBC 8.6 k/uL (3.8-10.6)
[2023-12-15 11:38] LABS: ALT 29 U/L (4-49); AST 44 U/L (17-59); African American GFR (CKD) >90 (>60 ml/min/1.73 sqM); Albumin 3.2 g/dL (3.5-5.0); Albumin/Globulin Ratio 1.2; Alkaline Phosphatase 104 U/L (38-126); Anion Gap 4 mmol/L; Blood Urea Nitrogen 20 mg/dL (9-20); Calcium 8.5 mg/dL (8.4-10.2); Carbon Dioxide 26 mmol/L (22-30); Chloride 112 mmol/L (98-107); Globulin 2.6 g/dL; Glucose 96 mg/dL (74-99); Non-African American GFR(CKD) 87 (>60 ml/min/1.73 sqM); Potassium 4.1 mmol/L (3.5-5.1); Sodium 142 mmol/L (137-145); Total Bilirubin 0.9 mg/dL (0.2-1.3); Total Protein 5.8 g/dL (6.3-8.2)
[2023-12-15 11:46] LABS: HGB 14.3 gm/dL (13.0-17.5)
--- NOTE | 2023-12-15 12:17 | P.HPIM ---
History of Present Illness H&P Date: 12/15/23 History of present illness; patient is a 68-year-old gentleman past medical significant for hypertension, coronary disease with recent stent placement who presented to the ER because abdominal pain and chills. Patient has not had cardiac stents placed at [facility] last week. Patient stated that he had been having abdominal pain for the last few days. Abdominal pain is intermittent, nonradiating, right-sided, no aggravating or leaving factors associated with his abdominal pain. There is no complaint nausea or vomiting. Patient was having fevers at home with associated chills. No complaint of chest pain or shortness of breath. Denies any cough. Denies any lightheadedness or dizziness. There was no complaint urinary burning, hesitancy urgency or incontinence. Because of the symptoms, patient came to the ER Initial lab work done in the ER showed WBC 12.4, hemoglobin 7.3, platelet count 222, sodium 1 3, potassium 4.9, BUN 20, creatinine 0.97, lactate 3.4 bilirubin 1.5 UA done showed large amount of blood, urine nitrite and leukocyte esterase were negative Influenza A not detected Influenza B not detected RSV not detected COVID-19 not detected EKG done in the ER showed heart rate of 46, no ST segment elevation or depression seen, no T-wave inversions seen. Chest x-ray done in the ER showed no acute cardiopulmonary disease or process CT abdominal and pelvis done showed mild right hydronephrosis secondary to obstructing 4 mm calculus in the ureterovesicular junction Patient admitted to internal medicine service REVIEW OF SYSTEMS: CONSTITUTIONAL: No fever, no malaise, no fatigue. HEENT: No recent visual problems or hearing problems. Denied any sore throat. CARDIOVASCULAR: No chest pain, orthopnea, PND, no palpitations, no syncope. PULMONARY: No shortness of breath, no cough, no hemoptysis. GASTROINTESTINAL: As mentioned above NEUROLOGICAL: No headaches, no weakness, no numbness. HEMATOLOGICAL: Denies any bleeding or petechiae. GENITOURINARY: Denies any burning micturition, frequency, or urgency. MUSCULOSKELETAL/RHEUMATOLOGICAL: Denies any joint pain, swelling, or any muscle pain. ENDOCRINE: Denies any polyuria or polydipsia. The rest of the 14-point review of systems is negative. PHYSICAL EXAMINATION: GENERAL: The patient is alert and oriented x3, not in any acute distress. Well developed, well nourished. HEENT: Pupils are round and equally reacting to light. EOMI. No scleral icterus. No conjunctival pallor. Normocephalic, atraumatic. No pharyngeal erythema. No thyromegaly. CARDIOVASCULAR: S1 and S2 present. No murmurs, rubs, or gallops. PULMONARY: Chest is clear to auscultation, no wheezing or crackles. ABDOMEN: Soft, nontender, nondistended, normoactive bowel sounds. No palpable organomegaly. MUSCULOSKELETAL: No joint swelling or deformity. EXTREMITIES: No cyanosis, clubbing, or pedal edema. NEUROLOGICAL: Gross neurological examination did not reveal any focal deficits. SKIN: No rashes. Assessment and plan Right 4 mm ureter calculus at the uterovesicular junction Right hydronephrosis Lactic acidosis History of coronary artery disease Hypertension Hyperlipidemia Monitor vital signs Monitor CBC Monitor CMP Continue telemetry monitoring Continue IV fluids Continue antiemetics Continue pain management Resume home meds, patient had recent cardiac stenting, resume Plavix Urology consulted Labs and medication were reviewed.. Continue same treatment. Continue with symptomatic treatment. Resume home medication. Monitor labs and vitals. DVT and GI prophylaxis. Further recommendations as per clinical course of the patient Dictation was produced using [employer] dictation software. please excuse any gra mmatical, word or spelling errors. Past Medical History Past Medical History: Atrial Fibrillation, COPD, Hypertension, Prostate Disorder Additional Past Medical History / Comment(s): BPH, AAA, CYST on Back History of Any Multi-Drug Resistant Organisms: None Reported Past Surgical History: Heart Catheterization With Stent Additional Past Surgical History / Comment(s): COLONOSCOPY Past Anesthesia/Blood Transfusion Reactions: No Reported Reaction Date of Last Stent Placement:: 12/11/23 Past Psychological History: No Psychological Hx Reported Smoking Status: Current every day smoker Past Alcohol Use History: None Reported Additional Past Alcohol Use History / Comment(s): SMOKES 1 PPD OR MORE, SMOKING OFF AND ON FOR 40 YEARS OR MORE. Past Drug Use History: None Reported - Past Family History Mother Family Medical History: CVA/TIA Brother(s) Family Medical History: Cancer Medications and Allergies Home Medications Medication Instructions Recorded Confirmed Type Atorvastatin [Lipitor] 40 mg PO HS 04/11/19 12/14/23 History Clopidogrel [Plavix] 75 mg PO DAILY #90 tab 05/16/19 12/14/23 Rx Apixaban [Eliquis] 5 mg PO BID 08/31/20 12/14/23 History Cholecalciferol [Vitamin D3 (25 50 unit PO DAILY 09/02/20 12/14/23 History Mcg = 1000 Iu)] Metoprolol Tartrate [Lopressor] 25 mg PO Q12H 12/14/23 12/14/23 History Mv-Min/Folic/K1/Lycopen/Lutein 1 tab PO DAILY 12/14/23 12/14/23 History [Centrum Silver Men Tablet] hydrALAZINE HCL [Apresoline] 25 mg PO BID 12/14/23 12/14/23 History Allergies Allergy/AdvReac Type Severity Reaction Status Date / Time No Known Allergies Allergy Verified 12/14/23 15:11 Physical Exam Vitals: Vital Signs Temp Pulse Pulse Resp BP BP Pulse Ox 12/15/23 07:32 98.3 F 58 L 19 112/55 95 12/15/23 01:13 98.3 F 78 18 133/63 94 L 12/14/23 20:00 98.4 F 59 L 20 129/68 97 12/14/23 19:53 59 L 18 12/14/23 19:28 98.3 F 71 18 148/72 95 12/14/23 15:48 60 18 150/69 96 12/14/23 14:37 50 L 18 177/97 100 12/14/23 13:43 98.5 F 45 L 26 H 165/70 100 Intake and Output 12/14/23 12/15/23 12/15/23 22:59 06:59 14:59 Other: Voiding Method Toilet # Voids 1 Weight 92.986 kg Results CBC & Chem 7: 12/14/23 14:19 12/14/23 14:19 Labs: Abnormal Lab Results - Last 24 Hours (Table) 12/14/23 12/14/23 12/14/23 Range/Units 14:11 14:19 14:19 WBC 12.4 H (3.8-10.6) k/uL Neutrophils # 10.7 H (1.3-7.7) k/uL Carbon Dioxide 20 L (22-30) mmol/L Glucose 148 H (74-99) mg/dL Plasma Lactic Acid Lobito (0.7-2.0) mmol/L Total Bilirubin 1.5 H (0.2-1.3) mg/dL Alkaline Phosphatase 167 H (38-126) U/L Urine Ketones 1+ H (Negative) Urine Blood Large H (Negative) Urine RBC 180 H (0-5) /hpf Hyaline Casts 3 H (0-2) /lpf Urine Mucus Rare H (None) /hpf 12/14/23 12/14/23 12/14/23 Range/Units 14:19 17:41 21:06 WBC (3.8-10.6) k/uL Neutrophils # (1.3-7.7) k/uL Carbon Dioxide (22-30) mmol/L Glucose (74-99) mg/dL Plasma Lactic Acid Lobito 3.4 H* 2.8 H* 3.1 H* (0.7-2.0) mmol/L Total Bilirubin (0.2-1.3) mg/dL Alkaline Phosphatase (38-126) U/L Urine Ketones (Negative) Urine Blood (Negative) Urine RBC (0-5) /hpf Hyaline Casts (0-2) /lpf Urine Mucus (None) /hpf
--- NOTE | 2023-12-15 12:20 | P.DS ---
Providers Date of admission: 12/14/23 16:43 Expected date of discharge: 12/15/23 Attending physician: Dawson Santoro Consults: 12/14/23 16:43 Consult Physician Routine Consulting Provider: Mike Diggs Consult Reason/Comments: Obstructing renal calculus Do you want consulting provider notified?: Already Contacted Primary care physician: Romeo Gordon [facility] Course: Discharge diagnoses; Right 4 mm ureter calculus at the uterovesicular junction Right hydronephrosis Lactic acidosis History of coronary artery disease Hypertension Hyperlipidemia Hospital course; patient is a 68-year-old gentleman past medical significant for hypertension, coronary disease with recent stent placement who presented to the ER because abdominal pain and chills. Patient has not had cardiac stents placed at [facility] last week. Patient stated that he had been having abdominal pain for the last few days. Abdominal pain is intermittent, nonradiating, right- sided, no aggravating or leaving factors associated with his abdominal pain. There is no complaint nausea or vomiting. Patient was having fevers at home with associated chills. No complaint of chest pain or shortness of breath. Denies any cough. Denies any lightheadedness or dizziness. There was no complaint urinary burning, hesitancy urgency or incontinence. Because of the symptoms, patient came to the ER Initial lab work done in the ER showed WBC 12.4, hemoglobin 7.3, platelet count 222, sodium 1 3, potassium 4.9, BUN 20, creatinine 0.97, lactate 3.4 bilirubin 1.5 UA done showed large amount of blood, urine nitrite and leukocyte esterase were negative Influenza A not detected Influenza B not detected RSV not detected COVID-19 not detected EKG done in the ER showed heart rate of 46, no ST segment elevation or depression seen, no T-wave inversions seen. Chest x-ray done in the ER showed no acute cardiopulmonary disease or process CT abdominal and pelvis done showed mild right hydronephrosis secondary to obstructing 4 mm calculus in the ureterovesicular junction Patient admitted to internal medicine service 12/15. Patient seen and examined. Urology evaluated patient, currently patient not having any pain, urology recommended that the patient will pass the stone on his own, recommended discharge on Flomax and following up outpatient. PHYSICAL EXAMINATION: GENERAL: The patient is alert and oriented x3, not in any acute distress. Well developed, well nourished. HEENT: Pupils are round and equally reacting to light. EOMI. No scleral icterus. No conjunctival pallor. Normocephalic, atraumatic. No pharyngeal erythema. No thyromegaly. CARDIOVASCULAR: S1 and S2 present. No murmurs, rubs, or gallops. PULMONARY: Chest is clear to auscultation, no wheezing or crackles. ABDOMEN: Soft, nontender, nondistended, normoactive bowel sounds. No palpable organomegaly. MUSCULOSKELETAL: No joint swelling or deformity. EXTREMITIES: No cyanosis, clubbing, or pedal edema. NEUROLOGICAL: Gross neurological examination did not reveal any focal deficits. SKIN: No rashes. Dictation was produced using [employer] dictation software. please excuse any grammatical, word or spelling errors. Patient Condition at Discharge: Stable Plan - Discharge Summary Discharge Rx Participant: No New Discharge Prescriptions: Continue Atorvastatin [Lipitor] 40 mg PO HS Clopidogrel [Plavix] 75 mg PO DAILY #90 tab Apixaban [Eliquis] 5 mg PO BID Cholecalciferol [Vitamin D3 (25 Mcg = 1000 Iu)] 50 unit PO DAILY hydrALAZINE HCL [Apresoline] 25 mg PO BID Metoprolol Tartrate [Lopressor] 25 mg PO Q12H Mv-Min/Folic/K1/Lycopen/Lutein [Centrum Silver Men Tablet] 1 tab PO DAILY Discharge Medication List Atorvastatin [Lipitor] 40 mg PO HS 04/11/19 [History] Clopidogrel [Plavix] 75 mg PO DAILY #90 tab 05/16/19 [Rx] Apixaban [Eliquis] 5 mg PO BID 08/31/20 [History] Cholecalciferol [Vitamin D3 (25 Mcg = 1000 Iu)] 50 unit PO DAILY 09/02/20 [History] Metoprolol Tartrate [Lopressor] 25 mg PO Q12H 12/14/23 [History] Mv-Min/Folic/K1/Lycopen/Lutein [Centrum Silver Men Tablet] 1 tab PO DAILY 12/14/23 [History] hydrALAZINE HCL [Apresoline] 25 mg PO BID 12/14/23 [History] Follow up Appointment(s)/Referral(s): Mike Diggs MD [STAFF PHYSICIAN] - 3 Weeks Romeo Gordon MD [Primary Care Provider] - 1-2 days Activity/Diet/Wound Care/Special Instructions: Strain urine. Discharge Disposition: HOME SELF-CARE
[2023-12-15] MEDS ORDERED: ATORVASTATIN 40 MG TAB PO SCH (21:00)
== END 2023-12-15 13:51 | disposition home or self-care (01) ==
LOC: EC 13:38 → INTOOBSV 16:43 → 5NMEDONC 16:43 → UNDODISIN 12-15 13:51
PROVIDERS: ADMIT Hospitalist; ATTEND Hospitalist
DX: N13.2 Hydronephrosis with renal and ureteral calculous obstruction (principal); E87.20 Acidosis, unspecified; I48.91 Unspecified atrial fibrillation; I10 Essential (primary) hypertension; N40.0 Benign prostatic hyperplasia without lower urinary tract symptoms; J44.9 Chronic obstructive pulmonary disease, unspecified; I25.10 Atherosclerotic heart disease of native coronary artery without angina pectoris; E78.5 Hyperlipidemia, unspecified; F17.200 Nicotine dependence, unspecified, uncomplicated; Z20.822 Contact with and (suspected) exposure to COVID-19; Z95.5 Presence of coronary angioplasty implant and graft; Z79.01 Long term (current) use of anticoagulants; Z79.899 Other long term (current) drug therapy
CPT/HCPCS: 96361 ×3; 96375; 96374; 99285; 36415; 80053 ×2; 83605 ×2; 83690; 85025 ×2; 85610; 85730; 81001; 87040; 87086; 87636; 71045; 74177; G0378 ×2; J2405; J0131; J1170; Q9967